=== PATIENT | female | born 1975 | race Caucasian/White ===

== ENCOUNTER → 2024-07-02 08:42 | Outpatient (CLI) | payer BC, SELFPAY ==
--- NOTE | ~2024-07-02 | XR_ITS ---
EXAMINATION: XR hand LT min 3V DATE: 07/02/2024 08:58 INDICATION: Left hand pain. TECHNIQUE: 3 views of left hand were obtained. COMPARISON: None. FINDINGS: Alignment is normal. No fracture. Joint spaces are normal. IMPRESSION: 1. Normal left hand. Reviewed, dictated and finalized at location A. [employer] IMPRESSION: 1. Normal left hand.
== END ==
DX: M79.645 Pain in left finger(s) (principal)
CPT/HCPCS: 73130

== ENCOUNTER 2024-07-14 12:03 | Emergency (ER) | payer BC, SELFPAY ==
--- NOTE | ~2024-07-14 | CT_ITS ---
EXAMINATION: CT brain wo con DATE: 07/14/2024 12:47 INDICATION: Headache. TECHNIQUE: Computed tomography (CT) of the head was performed without intravenous contrast. The mA wa s adjusted according to patient size. Iterative reconstruction technique was employed. The dose-lengt h product was 529.67 mGy-cm. COMPARISON: Head CT 03/17/2013 FINDINGS: There is no intracranial hemorrhage, acute infarction, or abnormal intracranial mass lesion . The ventricles are normal in size. The paranasal sinuses are clear. The orbits are normal. The mast oid air cells are normal. IMPRESSION: 1. Normal brain. Reviewed, dictated and finalized at location A. INTERN IMPRESSION: 1. Normal brain.
[2024-07-14 12:06] VITALS: BP 148/92; PULSE 66; RESP 16; TEMP 36.4; O2SAT 100
--- NOTE | 2024-07-14 12:37 | ED_ITS ---
HPI - Headache General Chief Complaint: Headache <PRACHI Watts Last Filed: 07/15/24 17:23> Stated Complaint: migraine [id number] <PRACHI Watts Last Filed: 07/15/24 17:23> Time Seen by Provider: 07/14/24 12:37 <Anahi Glover PA-C - Last Filed: 07/15/24 17:23> Focused HPI: This is a 49 year old female that presents to the ER for migraine headache. Reports she takes as needed Sumatriptan. She has been taking this with little relief. She has not taken anything yet today for her headache. GENERAL: Well-appearing, well-nourished, and in no acute distress. HEAD: Normocephalic, atraumatic. CHEST: Clear to auscultation. ?No respiratory distress. HEART: Regular rate and rhythm.? NEURO: ?Alert and oriented x3. Patient screened in triage and initial orders placed.? ?Additional care and disposition to be based upon?diagnostic testing and treatment. <Anahi Glover PA-C - Last Filed: 07/15/24 17:23> Source: patient <PRACHI Chen Last Filed: 07/15/24 01:54> Mode of arrival: ambulatory <PRACHI Chen Last Filed: 07/15/24 01:54> Limitations: no limitations <PRACHI Chen Last Filed: 07/15/24 01:54> History of Present Illness HPI Narrative: Agree with triage note above. She does confirm that she has migraine history but has not taken anything for migraines today. Endorses mild photophobia but no vision change. Denies numbness, weakness, neck pain, neck stiffness, fevers, chills, nausea, vomiting. <PRACHI Chen Last Filed: 07/15/24 01:54> Related Data Allergies/Adverse Reactions: Allergies Allergy/AdvReac Type Severity Reaction Status Date / Time Sulfa (Sulfonamide Allergy Unknown Hives Verified 07/14/24 12:05 Antibiotics) <PRACHI Watts Last Filed: 07/15/24 17:23> Review of Systems Review of Systems: All systems as dictated in HPI <Eric Jenkins PA-C - Last Filed: 07/15/24 01:54> PMFSH Family History Family History: Family History (Updated 01/11/16 @ 23:21 by DOCTOR UNKNOWN) Mother Family history of osteoarthritis Patient's mother is in good health Father Patient's father is in good health Sibling Patient's brother is in good health Family history of allergic disorder Grandparent Family history of Alzheimer's disease Other Family history of eczema Family history of migraine headaches <Anahi Glover PA-C - Last Filed: 07/15/24 17:23> Social History Social History: Social History Alcohol intake: current <Anahi Glover PA-C - Last Filed: 07/15/24 17:23> Exam Narrative: GENERAL: Well-appearing, well-nourished, and in no acute distress. HEAD: Normocephalic, atraumatic. EYES: PERRLA and EOMI. ENT: Nares clear, no rhinorrhea or epistaxis. Mucous membranes moist. Oropharynx without tonsillar hypertrophy exudate or other lesions. NECK: Supple. No adenopathy or masses. CHEST: No respiratory distress. Clear to auscultation. No wheezes rales or rhonchi HEART: Regular rate and rhythm. No murmur heard. Normal peripheral pulses. ABDOMEN: Soft, nontender, nondistended, normal active bowel sounds. MSK: Normal range of motion. No edema. SKIN: Warm, dry, no rash. NEURO: Alert and oriented x4. No focal deficits. PSYCH: Normal mood and affect. <Eric Jenkins PA-C - Last Filed: 07/15/24 01:54> Course Vital Signs Vital signs: Vital Signs Temperature 97.6 F 07/14/24 12:06 Pulse Rate 66 07/14/24 12:06 Respiratory Rate 16 07/14/24 12:06 Blood Pressure 148/92 H 07/14/24 12:06 Pulse Oximetry 100 07/14/24 12:06 Temperature 97.7 F 07/14/24 20:34 Pulse Rate 65 07/14/24 20:34 Respiratory Rate 18 07/14/24 20:34 Blood Pressure 148/98 H 07/14/24 20:34 Pulse Oximetry 100 07/14/24 20:34 <Anahi Glover PA-C - Last Filed: 07/15/24 17:23> Vital Signs Temperature 97.6 F 07/14/24 12:06 Pulse Rate 66 07/14/24 12:06 Respiratory Rate 16 07/14/24 12:06 Blood Pressure 148/92 H 07/14/24 12:06 Pulse Oximetry 100 07/14/24 12:06 Temperature 97.7 F 07/14/24 20:34 Pulse Rate 65 07/14/24 20:34 Respiratory Rate 18 07/14/24 20:34 Blood Pressure 148/98 H 07/14/24 20:34 Pulse Oximetry 100 07/14/24 20:34 <Eric Jenkins PA-C - Last Filed: 07/15/24 01:54> MDM - Headache MDM Narrative Medical decision making narrative: This is a 49-year-old female who presents to the ED for chief complaint of migraine headache times 36 hours. Vitals are normal. Exam remarkable for the above. No red flag signs for headache today. Low suspicion for infectious process. CT brain shows no acute findings. Patient was who given headache cocktail including magnesium which did provide good relief. Presentation consistent with migraine. Patient will be discharged in stable condition. Supportive measures discussed and return precautions given. Patient is understanding and agreeable with plan for discharge with PCP follow-up. <Eric Jenkins PA-C - Last Filed: 07/15/24 01:54> Imaging Data Radiologist's impression: ITS Impressions Head CT 07/14/24 12:47 IMPRESSION: 1. Normal brain. <Anahi Glover PA-C - Last Filed: 07/15/24 17:23> Critical Care Time Critical Care Time Critical Care Time: No <PRACHI Watts Last Filed: 07/15/24 17:23> Discharge Plan Discharge Clinical Impression: Migraine Qualifiers: Migraine type: unspecified Status migrainosus presence: without status migrainosus Intractability: not intractable Qualified Code(s): G43.909 - Migraine, unspecified, not intractable, without status migrainosus <Anahi Glover PA-C - Last Filed: 07/15/24 17:23> Patient Disposition: Home, Self-Care <Anahi Glover PA-C - Last Filed: 07/15/24 17:23> Condition: Stable <Anahi Glover PA-C - Last Filed: 07/15/24 17:23> Instructions: Antibiotic Form, Migraine Headache (ED) <Anahi Glover PA-C - Last Filed: 07/15/24 17:23> Additional Instructions: Your exam and imaging today are reassuring. Continue taking your normal headache medications as well as ibuprofen when headache arises. Follow-up with PCP on this issue. If you have any new or worsening symptoms please return to the ER for further evaluation. <Anahi Glover PA-C - Last Filed: 07/15/24 17:23> Patient Language: Guinean <Anahi Glover PA-C - Last Filed: 07/15/24 17:23> Follow-up/Referrals: PHYSICIAN NOT ON STAFF,NONSTAFF [Non-Staff] - <Anahi Glover PA-C - Last Filed: 07/15/24 17:23> Time of Disposition: 20:00 <Anahi Glover PA-C - Last Filed: 07/15/24 17:23> 20:00 <Eric Jenkins PA-C - Last Filed: 07/15/24 01:54>
--- OUTSIDE RECORDS SUMMARY | 2024-07-14 12:51 | XMS_ITS | Clinical Summary ---
Author Organization [facility] Address [address] [facility] [place] [address] Phone Care Team Providers Care [employer] Head Name Role Phone Rossi Jensen MD Primary Care Provider [phone] Allergies Active Allergy Reactions Criticality Noted Date Comments Sulfa (Sulfonamide Antibiotics) Hives High 08/31/2018 Other reaction(s): Urticaria Medications clindamycin phosphate (CLEOCIN) 1 % Lotion APPLY TO FACE 1 TO 2 TIMES DAILY TO FIGHT ACNE 0 Active aspirin (WINNIE CHEWABLE) 81 mg Tablet, Chewable Take 81 mg by mouth. Active multivitamin (DAILY-VARGAS) tablet Take 1 Tablet by mouth daily. Active cetirizine 5 mg tablet Take 5 mg by mouth daily. Active Epiduo Forte 0.3-2.5 % Gel with Pump 3 Active levonorgestrel (MIRENA INTRAUTERINE) by Intrauterine route. Active triamcinolone acetonide (KENALOG) 0.1 % Cream APPLY TWICE DAILY TO ITCHY IRRITATED SKIN WHEN NEEDED 3 Active tamoxifen (NOLVADEX) 20 mg tablet Take 1 Tablet (20 mg) by mouth daily. 90 Tablet 3 4 Active SUMAtriptan (IMITREX) 50 mg tabletIndicatio ns:Migraine with aura and without status migrainosus, not intractable TAKE 1 TABLET BY MOUTH EVERY 2 HOURS NEEDED FOR HEADACHE OR MIGRAINE. MAY REPEAT IN 2 HOURS; MAX DOSE 4 TABLETS IN 24 HOURS 9 Tablet 11 4 Active venlafaxine (EFFEXOR XR) 150 mg Extended Release 24 hour capsuleIndicati ons:Recurrent major depressive disorder, in partial remission,Anxie ty state TAKE 1 CAPSULE(150 MG) BY MOUTH DAILY 90 Capsule 1 4 Active gabapentin (NEURONTIN) 100 mg capsuleIndicati ons:Menopausal symptoms Take 1 Capsule (100 mg) by mouth daily at bedtime. 100 Capsule 3 5 Active Magnesium Glycinate 100 mg TabletIndicatio ns:At high risk for breast cancer,Hot flashes Take 200 mg by mouth daily at bedtime. 5 Active methylPREDNISol one (MEDROL DOSPACK) 4 mg Tablets, Dose Pack 1st day: Take 2 tablets before breakfast, 1 tablet after lunch and after supper, and 2 tablets at bedtime. 2nd day: Take 1 tablet before breakfast, 1 tablet after lunch and after supper, and 2 tablets at bedtime. 3rd day: Take 1 tablet before breakfast and 1 tablet after lunch, after supper, and at bedtime. 4th day: Take 1 tablet before breakfast, after lunch, and at bedtime. 5th day: Take 1 tablet before breakfast and at bedtime. 6th day: Take 1 tablet before breakfast. 21 Tablet 5 Active amoxicillin-cla vulanate (AUGMENTIN) 875-125 mg tablet Take 1 Tablet by mouth every 12 hours. 20 Tablet 5 Active Active Problems Patient Care Coordination No te Formatting of this note migh t be different from the original. Primary Care: Eli Martini MD Referring Provider: Eli Martini MD [address] [address] Other: Dr Rosaline Martins MD Problem Noted Date Diagnosed Date Migraine with aura and witho ut status migrainosus, not intractable 11/30/2020 Recurrent major depressive disorder, in partial remission 11/30/2020 Overweight (BMI 25.0-29.9) 11/30/2020 Atypical ductal hyperplasia of left breast 11/21 Breast cancer screening, high risk patient 11/21 Anxiety state 11/28/2019 Resolved Problems Problem Noted Date Diagnosed Date Resolved Date Weight gain 11/28/2019 04/16/2023 Encounters Date Type Department Care Team Description 07/14/2024 10:40 AM MANAGER PATIENT Office Visit [facility] Primary Care [facility] [address] [place] [address] Jaylen Cerda PA-C Cough, unspecified type (Primary Dx); Worst headache of life 07/06/2024 External Device Data ST[facility] ABSTRACTION Provider, Abstract 07/05/2024 External Device Data ST[facility] ABSTRACTION Provider, Abstract 07/04/2024 Results Follow-Up [facility] [address] [place] [address] Rossi Jensen MD 07/04/2024 Orders Only [facility] [address] [place] [address] Rossi Jensen MD Pain of finger of left hand 07/01/2024 2:00 PM MANAGER PATIENT Office Visit [facility] Oncology and Hematology [facility] [address] [facility] [address] [place] [phone] Martha Malone, RAAD At high risk for breast cancer (Primary Dx); Hot flashes; SERM use (selective estrogen receptor modulator); Atypical ductal hyperplasia of left breast; Encounter for medication monitoring 07/01/2024 11:45 AM MANAGER PATIENT Office Visit [facility] Breast Surgery José Miguel Severiano [address] [facility] [address] [place] [address] Dot Holland, ASSISTANT HVAC MECHANIC Breast cancer screening by mammogram (Primary Dx); Atypical ductal hyperplasia of left breast; At high risk for breast cancer; Family history of breast cancer; Prophylactic use of tamoxifen 07/01/2024 Chart Note [facility] Breast Surgery José Miguel [place] [address] [facility] [address] [place] [address] Yuly Abbasi 06/28/2024 External Device Data STL ABSTRACTION Provider, Abstract 06/27/2024 1:00 PM MANAGER PATIENT Office Visit [facility] [address] [place] [address] Rossi Jensen MD Pain of finger of left hand (Primary Dx); Menopausal symptoms; Anxiety state; Migraine with aura and without status migrainosus, not intractable; Recurrent major depressive disorder, in partial remission; Atypical ductal hyperplasia of left breast; Overweight (BMI 25.0-29.9); Screening for diabetes mellitus; Screening, anemia, deficiency, iron; Screening cholesterol level; Screening for thyroid disorder; Vitamin D insufficiency 06/27/2024 9:07 AM MANAGER PATIENT - 06/27/2024 11:59 PM [facility] Hospital Encounter [facility] [address] Miguel [place] [address] [place] [address] Dot Holland, ASSISTANT HVAC MECHANIC Discharge Disposition: Home or Self Care 06/13/2024 Refill [facility] Primary Care [place] [facility] [address] [place] [address] Rossi Jensen MD Recurrent major depressive disorder, in partial remission; Anxiety state from Last 3 Months Immunizations Immunization Administration Dates Next Due (SPIKEVAX) (12 YRS UP PRIMAR Y SERIES) COVID-19 VACCINE - MRNA-1273(PF) 100 MCG/0.5 ML IM SUSP 09/13/2020,08/13/2020 INFLUENZA VACCINE QUADRIVALE NT 6 MOS UP PF IM 04/16/2023 INFLUENZA VACCINE TRIVALENT SPLIT VIRUS, (6 MOS UP), 0.5ML (PF), IM 03/15/2024 Influenza Seasonal Unspecifi ed Formulation IM 03/15/2022,04/11/2021,04/09/2020 Family History Medical History Relation Name Comments Healthy Brother 1 Healthy Brother 2 Healthy Brother 3 Healthy Daughter 1 Healthy Daughter 2 High Cholesterol Father dad Hypertension Father dad Kidney Disease Maternal Grandfather Grandpa nicole Hypertension Mother Mom Osteoporosis Mother Mom Osteo-arthritis Cancer Paternal Grandfather Grandp Prostat e cancer Cancer - Other Paternal Grandfather Grandp Prost ate cancer Colon Cancer Paternal Grandfather Grandp Prostate Cancer Paternal Grandfather Grandp Other Paternal Grandmother Sunitha vision Healthy Son Relation Name Status Comments Brother 1 Alive Brother 2 Alive Brother 3 Alive Daughter 1 Alive Daughter 2 Alive Father dad Alive Maternal Grandfather Grandpa nicole Maternal Grandmother Mother Mom Alive Paternal Grandfather Grandp Paternal Grandmother Sunitha Son Alive Social History Tobacco Use Types Packs/Day Years Used Date Smoking Tobacco: Never Passive Smoke Exposure: Never Smokeless Tobacco: Never Tobacco Cessation:Counseling Given: Not Answered Alcohol Use Standard Drinks/Week Comments Yes 1 (1 standard drink = 0.6 oz pur e alcohol) not often Feeling Safe Answer Date Recorded Fear of Current or Ex-Partner Not on file Emotionally Abused Not on file 07/21/2023 Within the last year, have y ou been kicked, hit, slapped, or otherwise physically hurt by your partner or ex-partner? No 07/21/2023 Sexually Abused Not on file 07/21/2023 Feeling Safe Answer Date Recorded Do you worry about feeling s afe and happy with the people in your life? No 07/01/2024 Comments No Sex and Gender Information Value Date Recorded Sex Assigned at Not on file Legal Sex Female 5:06 AM MANAGER PATIENT Gender Identity Not on file Sexual Orientation Not on file Last Filed Vital Signs Vital Sign Reading Time Taken Comments Blood Pressure 110/80 07/14/2024 10:44 AM MANAGER PATIENT Pulse 83 07/14/2024 10:44 AM MANAGER PATIENT Temperature 36.9 ??C (98.5 ??F) 07/14/2024 10:[address] Respiratory Rate 18 07/14/2024 10:44 AM MANAGER PATIENT Oxygen Saturation 98% 07/14/2024 10:44 AM MANAGER PATIENT Inhaled Oxygen Concentration - - Weight 78.3 kg (172 lb 9.6 oz) 07/14/2024 10:44 AM MANAGER PATIENT Height 167.6 cm (5' 6 ) 07/14/2024 10:44 AM MANAGER PATIENT Body Mass Index 27.86 07/14/2024 10:44 AM MANAGER PATIENT Plan of Treatment Upcoming Encounters Date Type Department Care Team (Late st Contact Info) Description 10/03/2024 2:40 PM CDT Office Visit [facility] Primary Care [facility] [address] [place] [address] Rossi Jensen MD [address] [place] [address] 12/12/2024 10:00 AM CDT Office Visit [facility] [address] [address] [email or web address] [address] [place] [address] Gloria Montez MD [address] [facility] [address] [place] [address] 12/27/2024 8:30 AM CDT Appointment [facility] Medical [place] A [address] [place] [address] Dot Holland, [facility] [address] [facility] [address] [place] [address] Health Maintenance Due Date Last Done Comments DTAP/TDAP/TD VACCINES (1 - Tdap) 1994 HEPATITIS B VACCINES (1 of 3 - 19+ 3-dose series) 1994 FIT-DNA Q 3 years 2020 FIT/FOBT Q 1 year 2020 Flex Sig/CT Colonography Q 5 years 2020 Pre-Diabetes and Diabetes Screening 01/25/2023 01/26/2020 COVID-19 Vaccine (2023-2 5 season) 2024 09/13/2020, 08/13/2020 Preventative Visit- Commercial 06/15/2024 0 12/11/2023, 08/31/2023, 12/09/2022, Additional history exists BREAST CANCER SCREENING 11/25/2024 11/26/19 24, 07/30/2023, 12/08/2022, Additional history exists CERVICAL CANCER SCREENING 12/09/20252022, 11/27/2021, 11/27/2020, Additional history exists COLORECTAL SCREENING 09/12/2028 09/12/2021, 09/13/19 22 Colorectal Cancer Screening 09/12/2028 INFLUENZA VACCINE Completed 03/15/2024, , 03/15/2022, Additional history exists Medical Devices Implanted Type Area Audit Mgr Device Identifier Shelf Expiration Date Model / Serial / Lot Hemostatic Surgicel 2x14in 1950 - [id number] Implanted:Qty: 1 on 02/14/2020 by Rosaline Martins MD at [facility] Hemostatic Left: Breast [employer] 03/14/20221950 / / [id number] Procedures Procedure Name Priority Date/Time Associated Diagnosis Comments POC INFLUENZA A/B AND COVID-19 ANTIGENS Routine 07/14/2024 11:11 AM MANAGER PATIENT Cough, unspecified type VITAMIN D 25 HYDROXY Routine 07/04/2024 9:05 AM MANAGER PATIENT Vitamin D insufficiency TSH REFLEXIVE Routine 07/04/2024 9:05 AM MANAGER PATIENT Screening for thyroid disorder LIPID PANEL Routine 07/04/2024 9:05 AM MANAGER PATIENT Screening cholesterol level COMPREHENSIVE METABOLIC PANEL Routine 07/04/2024 9:05 AM MANAGER PATIENT Screening for diabetes mellitus CBC WITH DIFFERENTIAL Routine 07/04/2024 9:05 AM MANAGER PATIENT Atypical ductal hyperplasia of left breast Screening, anemia, deficiency, iron XR HAND 3+ VW LEFT Routine 07/02/2024 Pain of finger of left hand MRI BREAST DIAGNOSTIC WWO CONTRAST BILATERAL Routine 06/27/2024 9:49 AM MANAGER PATIENT Atypical ductal hyperplasia of left breast Breast cancer screening, high risk patient At high risk for breast cancer MAMMO 3D CASIE SCREEN BILAT W OR WO CAD Routine 11/26/2023 9:34 AM CDT Visit for screening mammogram CERV/VAG CYTO AGE BASED SCREEN PAP Routine 12/09/2022 10:56 AM CDT Well woman exam with routine gynecological exam COLONOSCOPY REPORT 09/12/2021 12 :17 PM CDT HEMOGLOBIN A1C Routine 01/26/2020 10:00 AM CDT Screening for diabetes mellitus (DM) from Last 3 Months or Most Recently Relevant to Health Maintenance Results * POC INFLUENZA A/B AND COVID-19 ANTIGENS (07/14/2024 11:11 AM MANAGER PATIENT) INFLUENZA A AG POC Not Detected Not Detected [facility] INFLUENZA B AG POC Not Detected Not Detected [facility] COVID-19 ANTIGEN POC Presumptively Negative Presumptively Negative [facility] INTERNAL KIT QC POC Pass Pass [facility] KIT LOT NUMBER POC [id number] [facility] KIT EXP DATE POC [id number] [facility] Upper Respiratory 07/14/2024 11:11 AM MANAGER PATIENT us Jaylen Cerda PA-C POINT OF CARE TESTING Final Result Performing Organization Address [facility] de Phone Number [facility] CLIA# [id number] [address] [place] [address] * TSH REFLEXIVE (07/04/2024 9:05 AM MANAGER PATIENT) TSH 1.53 mIU/L [facility] Comment: ?Reference Range ?> or = 20 Years ??0.40-4.50 ? Ranges ?First trimester ?0.26-2.66 ?Second trimester ?? 0.55-2.73 ?Third trimester ?0.43-2.91 Test Performed at: [facility] [address] [place] ??[phone] Sloane Johnson MD Blood 07/04/2024 9:05 AM MANAGER PATIENT 07/04/2024 9:06 AM MANAGER PATIENT us Rossi Jensen MD CHEMISTRY ORDERABLES Final Resul t Performing Organization Address [facility] de Phone Number [facility] [phone] [facility] [address] [place] [address] * CBC WITH DIFFERENTIAL (07/04/2024 9:05 AM MANAGER PATIENT) WBC 5.6 3.8 - 10.8 Thousand/u L [facility] RBC 4.45 3.80 - 5.10 Million/uL [facility] HEMOGLOBIN 14.0 11.7 - 15.5 g/dL [facility] HEMATOCRIT 42.3 35.0 - 45.0 % [facility] MCV 95.1 80.0 - 100.0 fL [facility] MCH 31.5 27.0 - 33.0 pg [facility] MCHC 33.1 32.0 - 36.0 g/dL [facility] Comment: For adults, a slight decrease in the calculated MCHC value (in the range of 30 to 32 g/dL) is most likely not clinically significant; however, it should be interpreted with caution in correlation with other red cell parameters and the patient's clinical condition. RDW 12.3 11.0 - 15.0 % [facility] PLATELETS 359 140 - 400 Thousand/u L [facility] MPV 10.1 7.5 - 12.5 fL [facility] NEUTROPHIL ABSOLUTE 2,873 1,500 - 7,800 cells/uL [facility] LYMPHOCYTE ABSOLUTE 2,167 850 - 3,900 cells/uL [facility] MONOCYTE ABSOLUTE 381 200 - 950 cells/uL [facility] EOSINOPHIL ABSOLUTE 118 15 - 500 cells/uL [facility] BASOPHILS ABSOLUTE 62 0 - 200 cells/uL [facility] NEUTROPHIL 51.3 % [facility] LYMPHOCYTES 38.7 % [facility] MONOCYTE 6.8 % [facility] EOSINOPHILS 2.1 % [facility] BASOPHILS 1.1 % [facility] Comment: FASTING:YES FASTING: YES Test Performed at: [facility] [address] [place] ??[phone] Sloane Johnson MD Blood 07/04/2024 9:05 AM MANAGER PATIENT 07/04/2024 9:06 AM MANAGER PATIENT us Rossi Jensen MD HEMATOLOGY ORDERABLES Final Resu lt [facility] [phone] [facility] [address] * VITAMIN D 25 HYDROXY (07/04/2024 9:05 AM MANAGER PATIENT) VITAMIN D, 25 OH, TOTAL 78 30 - 100 ng/mL [facility] Comment: Vitamin D Status ? 25-OH Vitamin D: Deficiency: ?<20 ng/mL Insufficiency: ? 20 - 29 ng/mL Optimal: ? > or = 30 ng/mL For 25-OH Vitamin D testing on patients on D2-supplementation and patients for whom quantitation of D2 and D3 fractions is required, the Quest[facility]ure[facility](TM) 25-OH VIT D, (D2,D3), LC/MS/MS is recommended: order code [id number] (patients >2yrs). See Note 1 Note 1 For additional information, please refer to http://education.[facility]/faq/DNZ464 (This link is being provided for informational/ educational purposes only.) FASTING:YES FASTING: YES Test Performed at: [facility] ??[phone] Sloane Johnson MD Blood 07/04/2024 9:05 AM MANAGER PATIENT 07/04/2024 9:06 AM MANAGER PATIENT us Rossi Jensen MD CHEMISTRY ORDERABLES Final Resul t Performing Organization Address City/[facility]/ZIP Co de Phone Number [facility] [phone] [facility] [address] * LIPID PANEL (07/04/2024 9:05 AM MANAGER PATIENT) Pathologist [facility] CHOLESTEROL 164 <200 mg/dL [facility] HDL 68 > OR = 50 mg/dL [facility] TRIGLYCERIDE 110 <150 mg/dL [facility] LDL CALCULATED 76 mg/dL (calc) [facility] Comment: Reference range: <100 Desirable range <100 mg/dL for primary prevention; ?? <70 mg/dL for patients with CHD or diabetic patients with > or = 2 CHD risk factors. LDL-C is now calculated using the Kevin-Walker calculation, which is a validated novel method providing better accuracy than the Friedewald equation in the estimation of LDL-C. Kevin SS et al. DEMETRIUS. 2013;310(19): 2585-1831 (http://education.[facility]/faq/YXC970) CHOL/HDL RATIO 2.4 <5.0 (calc) [facility] NON-HDL CHOLESTEROL 96 <130 mg/dL (calc) [facility] Comment: For patients with diabetes plus 1 major ASCVD risk factor, treating to a non-HDL-C goal of <100 mg/dL (LDL-C of <70 mg/dL) is considered a therapeutic option. Test Performed at: [facility] [address] [place] ??[phone] Sloane Johnson MD Blood 07/04/2024 9:05 AM MANAGER PATIENT 07/04/2024 9:06 AM MANAGER PATIENT us Rossi Jensen MD CHEMISTRY ORDERABLES Final Resul t [facility] [phone] [facility] [address] [place] [address] * (ABNORMAL) COMPREHENSIVE METABOLIC PANEL (07/04/2024 9:05 AM MANAGER PATIENT) GLUCOSE 81 65 - 99 mg/dL [facility] Comment: ? Fasting reference interval BUN 19 7 - 25 mg/dL [facility] CREATININE 1.01(H) 0.50 - 0.99 mg/dL [facility] GFR 68 > OR = 60 mL/min/1.7 3m2 [facility] BUN/CREAT RATIO 19 6 - 22 (calc) [facility] SODIUM 140 135 - 146 mmol/L [facility] POTASSIUM 4.6 3.5 - 5.3 mmol/L [facility] CHLORIDE 103 98 - 110 mmol/L [facility] CO2 32 20 - 32 mmol/L [facility] CALCIUM 9.8 8.6 - 10.2 mg/dL [facility] TOTAL PROTEIN 7.1 6.1 - 8.1 g/dL [facility] ALBUMIN 4.5 3.6 - 5.1 g/dL [facility] GLOBULIN 2.6 1.9 - 3.7 g/dL (calc) [facility] ALBUMIN/GLOBULIN RATIO 1.7 1.0 - 2.5 (calc) [facility] BILIRUBIN TOTAL 0.4 0.2 - 1.2 mg/dL [facility] ALKALINE PHOSPHATASE 44 31 - 125 U/L [facility] AST 24 10 - 35 U/L [facility] ALT 19 6 - 29 U/L [facility] Comment: FASTING:YES FASTING: YES Test Performed at: [facility] [address] [place] ??[phone] Sloane Johnson MD Blood 07/04/2024 9:05 AM MANAGER PATIENT 07/04/2024 9:06 AM MANAGER PATIENT Rossi Jensen MD CHEMISTRY ORDERABLES Final Resul t [facility] [phone] [facility] [address] [place] [address] * XR HAND 3+ VW LEFT (07/02/2024) Anatomical Region Laterality Modality Wrist / Hand Other 07/02/2024 Rossi Jensen MD DIAGNOSTIC IMAGING ORDERABLES Fi nal Result * MRI BREAST W WO CONT BILAT (06/27/2024 9:49 AM MANAGER PATIENT) Anatomical Region Laterality Modality Breast Bilateral Magnetic Resonan ce 06/27/2024 9:53 AM MANAGER PATIENT Impressions 06/27/2024 10:22 AM MANAGER PATIENT IMPRESSION: ?? 1. No evidence of malignancy is identified within either breast. RECOMMENDATIONS: ?? Routine imaging follow-up is recommended, which may include annual mammography as well as annual bilateral breast MRI in this patient with increased breast cancer risk. DICTATION LOCATION: ??[place] Narrative 06/27/2024 10:22 AM MANAGER PATIENT BILATERAL BREAST MRI WITHOUT AND WITH IV CONTRAST WITH CAD ?? DATE: 06/27/2024 9:49 AM HISTORY: Breast cancer screening, high risk (Female >= 18y), high risk for breast cancer. ??Previous excisional biopsy in the left in 2023 a complex sclerosing lesion and ADH. Family history breast cancer with increased breast cancer risk. Previous benign MRI guided core biopsy left breast last year. High-risk screening. COMPARISON: May 2021 through June 2023. The bilateral mammogram performed in November 2023 was also reviewed. TECHNIQUE: Bilateral multisequence dynamic breast MRI was performed before and after intravenous contrast administration. Images are acquired on dedicated Sentinelle breast coil system and image interpretation performed with [employer]inos CAD software. ?? BREAST COMPOSITION: There are scattered areas of fibroglandular density. BACKGROUND ENHANCEMENT: Mild FINDINGS: No new enhancing mass or suspicious nonmass enhancement is identified within either breast which stands out above background. The nipple areolar complexes are normal. No dermal thickening or enhancement is appreciated. There is no evidence of axillary or internal mammary adenopathy. The visible soft tissues of the anterior chest wall appear normal. OVERALL FINAL ASSESSMENT: BI-RADS CATEGORY 1 - Negative us Dot Holland ASSISTANT HVAC MECHANIC MR ORDERABLES Final Res ult * MAMMO 3D CASIE SCREEN BILAT W OR WO CAD (11/26/2023 9:34 AM CDT) Anatomical Region Laterality Modality Breast Bilateral Mammography 11/26/2023 9:35 AM CDT Impressions 11/27/2023 7:53 AM CDT IMPRESSION: ?? No mammographic evidence of malignancy. RECOMMENDATIONS: ?? Routine screening mammogram in one year. DICTATION LOCATION: ??[place] Narrative 11/27/2023 7:53 AM CDT BILATERAL FULL-FIELD DIGITAL SCREENING MAMMOGRAM WITH CAD WITH 3D TOMOSYNTHESIS DATE: 11/26/2023 9:34 AM HISTORY: Routine screening. ??Previous excisional biopsy on the left for atypia and previous benign biopsy of the left breast. Annual follow-up. ?? TECHNIQUE: Full-field digital craniocaudal and mediolateral oblique projections of both breasts were obtained. Low-dose full-field digital breast tomosynthesis examination was performed with 2D and 3D acquisitions. Examination is read in conjunction with computer aided detection. COMPARISON: November 2019 through July 2023. ?? BREAST COMPOSITION: There are scattered areas of fibroglandular density. FINDINGS: No suspicious mass, suspicious microcalcifications, or architectural distortion in either breast is identified. Since the prior study, there has been no significant interval change. The computer aided diagnosis detects no significant abnormality. OVERALL FINAL ASSESSMENT: ??BI-RADS CATEGORY 1 - Negative. Procedure Note ChambersChristian MD - 11/27/2023 BILATERAL FULL-FIELD DIGITAL SCREENING MAMMOGRAM WITH CAD WITH 3D TOMOSYNTHESIS DATE: 11/26/2023 9:34 AM HISTORY: Routine screening. Previous excisional biopsy on the left for atypia and previous benign biopsy of the left breast. Annual follow-up. TECHNIQUE: Full-field digital craniocaudal and mediolateral oblique projections of both breasts were obtained. Low-dose full-field digital breast tomosynthesis examination was performed with 2D and 3D acquisitions. Examination is read in conjunction with computer aided detection. COMPARISON: November 2019 through July 2023. BREAST COMPOSITION: There are scattered areas of fibroglandular density. FINDINGS: No suspicious mass, suspicious microcalcifications, or architectural distortion in either breast is identified. Since the prior study, there has been no significant interval change. The computer aided diagnosis detects no significant abnormality. OVERALL FINAL ASSESSMENT: BI-RADS CATEGORY 1 - Negative. IMPRESSION: No mammographic evidence of malignancy. RECOMMENDATIONS: Routine screening mammogram in one year. DICTATION LOCATION: [facility] Sever[facility] [place] ASSISTANT HVAC MECHANIC MAMMO ORDERABLES Final Re sult * CERV/VAG CYTO AGE BASED SCREEN PAP (12/09/2022 10:56 AM CDT) COMMENT (PAP): [facility] [place] Comment: This order for age-based cervical cancer and STI screening follows ACOG guidelines(PB 168, 140, ERZ959). See individual assays for performing site location. CLINICAL INFORMATION [facility] [place] Comment:Routine exam LAST MENSTRUAL PERIOD [facility] [place] Comment:NONE GIVEN PREV PAP: [facility] [place] Comment:NONE GIVEN PREV BX: [facility] [place] Comment:NONE GIVEN SOURCE [facility] [place] Comment:Endocervix ADEQUACY: [facility] [place] Comment: Satisfactory for evaluation. Endocervical/transformation zone component present. Age and/or menstrual status not provided PAP INTERP [facility] [place] Comment:Negative for intraep ithelial lesion or malignancy. COMMENT (PAP TEST) [facility] [place] Comment: This Pap test has been evaluated with computer assisted technology. GLASS PRESSER: [facility] Comment: MVB, CT(ASCP) CT Screening Location: [place] [address] [place] [address] EXPLANATORY NOTE [facility] Comment: EXPLANATORY NOTE: The Pap is a screening test for cervical cancer. It is not a diagnostic test and is subject to false negative and false positive results. It is most reliable when a satisfactory sample, regularly obtained, is submitted with relevant clinical findings and history, and when the Pap result is evaluated along with historic and current clinical information. HPV E6/E7 Not Detected Not Detected [facility] [place] Comment: Methodology: Iron Miner [employer]asting-Mediated Amplification This assay detects E6/E7 viral messenger RNA (mRNA) from 14 high-risk HPV types (16,18,31,33,35,39,45,51,52,56,58,59,66,68). Cervical sources are required for HPV testing. If a vaginal source from a patient who has had a total hysterectomy with removal of cervix was submitted, please contact the testing laboratory for alternative testing options. For additional information, please refer to http://education.hi5/faq/LRK755p8 (This link if provided for information/ educational purposes only.) Test Performed at: [facility] [address] [place], [place] ??[address] Slo[facility] BARBOZA Genital SWAB OF ENDOCERVIX / Unknown 12/09/2022 10:56 AM CDT 12/09/2022 11:29 PM CDT Gloria Montez MD PATHOLOGY/CYTOLOGY ORD ERABLES Final Result [facility] [phone] [facility] [address] [place] [address] * COLONOSCOPY REPORT (09/12/2021 12:17 PM CDT) Narrative Procedure Note Moody Aguilera MD - 09/12/2021 12:17 PM CDT [facility] Endoscopy Patient Name: Kelly Red Procedure Date: 09/12/2021 Date of : 1975 Attending MD: Moody Aguilera MD Procedure: Colonoscopy Indications: Screening for colorectal malignant neoplasm Providers: Moody Aguilera MD Referring MD: Rossi Jensen MD Medicines: Monitored Anesthesia Care Complications: No immediate complications. Procedure: Informed consent was obtained for the procedure, including moderate sedation after risks were discussed. Based on the pre-procedure assessment, including review of the patient's medical history, medications, allergies, and review of systems, the patient was deemed to be an appropriate candidate for sedation. A timeout was performed. Continuous ECG monitoring, pulse oximetry, blood pressure monitoring, and direct observation were performed. The Colonoscope was introduced through the anus and advanced to the cecum, identified by appendiceal orifice and ileocecal valve. The colonoscopy was performed without difficulty. The patient tolerated the procedure well. The quality of the bowel preparation was evaluated using the BBPS ([place] Bowel Preparation Scale) with scores of: Right Colon = 3, Transverse Colon = 3 and Left Colon = 3 (entire mucosa seen well with no residual staining, small fragments of stool or opaque liquid). The total BBPS score equals 9. Findings: A 4 mm polyp was found in the transverse colon. The polyp was sessile. The polyp was removed with a cold snare. Resection and retrieval were complete. The exam was otherwise normal throughout the examined colon. Non-bleeding internal hemorrhoids were found during retroflexion. The hemorrhoids were small. Impression: - One 4 mm polyp in the transverse colon, removed with a cold snare. Resected and retrieved. - Non-bleeding internal hemorrhoids. Recommendation: - Await pathology results. - If the pathology report reveals adenomatous tissue, then repeat the colonoscopy for surveillance in 7 years. - If the pathology report indicates hyperplastic polyp, then repeat colonoscopy for screening purposes in 10 years. Procedure Code(s): --- Professional --- 45807, Colonoscopy, flexible; with removal of tumor(s), polyp(s), or other lesion(s) by snare technique CPT copyright 2019 [employer]. All rights reserved. The codes documented in this report are preliminary and upon lead presser review may be revised to meet current compliance requirements. Moody Aguilera MD 09/12/2021 12:16:49 PM This report has been signed electronically. Number of Addenda: [id number] [place] [address] Moody Aguilera MD GI PROCEDURE ORDERABLES Final Re sult * HEMOGLOBIN A1C (01/26/2020 10:00 AM CDT) HEMOGLOBIN A1C 5.4 <5.7 % 01/26/2020 4:01 PM CDT [facility] [email or web address] [facility] EST. AVG GLUCOSE, A1C 108 mg/dL 01/26/2020 4:01 PM CDT [facility] [email or web address] [facility] Blood Venipuncture / Unknown 01/26/2020 10:00 AM CDT 01/26/2020 10:05 AM CDT Narrative [facility] [email or web address] [facility] - 01/26/2020 4:01 PM CDT HGB A1C INTERPRETATION NORMAL: ? <5.7% PRE-DIABETES: 5.7 - 6.4% DIABETES: ? 6.5% OR GREATER us Eli Martini MD CHEMISTRY ORDERABLES Final Res ult [facility] [id number] [place] [address] from Last 3 Months or Most Recently Relevant to Health Maintenance Insurance [facility] [email or web address] ACCESS CHOICE [facility] [email or web address] CHOICE [email or web address] CHOICE Care Teams Global Analytics Head Relationship Specialty Start Date End Date Birner, Rossi, MD [address] [place] [address] PCP - General Internal Medicine 11/30/20
--- OUTSIDE RECORDS SUMMARY | 2024-07-14 12:51 | XMS_ITS | Clinical Summary ---
Author Organization [facility] Address [address] [facility] [place] [address] Care Team Providers Care Career Resource Technician Name Role Phone Eli Martini MD Primary Care Provider Unavail able Source Comments [facility],non-owned Affiliates and Associated Physician Practices is amultiple site organization consisting of ambulatory clinics and hospital sitesin [place], [place], [place] and [place]. This disclosure is being madepursuant to the Care Everywhere program and may not contain all information available regarding this patient. Last updated 18.[facility] Allergies Active Allergy Reactions Criticality Noted Date Comments Sulfa Drugs Urticaria Medium 10/17/2020 Medications * Be aware that medications may not be up to date on this document. Alwaysverify current medications with the patient. Medication Sig Dispensed Refills Start Date End Date Status Loratadine (CLARITIN PO) Active aspirin (ASPIRIN) 81 MG chew tablet Take 81 mg by mouth once daily Active venlafaxine (EFFEXOR) 37.5 MG tablet Take 75 mg by mouth 3 times daily with meals Active tamoxifen (NOLVADEX) 20 MG tablet Take 20 mg by mouth once daily Active Social History Tobacco Use Types Packs/Day Years Used Date Smoking Tobacco: Never Smokeless Tobacco: Never PHQ-2 Answer Date Recorded PHQ2 TOTAL SCORE 0 10/17/2020 Sex and Gender Information Value Date Recorded Sex Assigned at Not on file Gender Identity Not on file Sexual Orientation Not on file Last Filed Vital Signs Vital Sign Reading Time Taken Comments Blood Pressure 124/74 10/17/2020 7:01 PM CDT Pulse 80 10/17/2020 7:01 PM CDT Temperature 36.7 ??C (98.1 ??F) 10/17/2020 7:01 PM CD T Respiratory Rate 16 10/17/2020 7:01 PM CDT Oxygen Saturation 98% 10/17/2020 7:01 PM CDT Inhaled Oxygen Concentration - - Weight 78.5 kg (173 lb) 10/17/2020 7:01 PM CDT Height 167.6 cm (5' 6 ) 10/17/2020 7:01 PM CDT Body Mass Index 27.92 10/17/2020 7:01 PM CDT Plan of Treatment Health Maintenance Due Date Last Done Comments COLOGUARD (AGES 45-75) - COLON CA SCREENING 1975 COLON MONITORING 1975 COLONOSCOPY - COLON CA SCREENING 1975 CT COLONOGRAPHY - COLON CA SCREENING 1975 Colorectal Cancer Screening 1975 FIT - COLON CA SCREENING 1975 FLEX SIG - COLON CA SCREENING 1975 LIPID TESTING 1975 MAMMOGRAM 1975 PAP SMEAR 1975 HIV SCREENING 1990 HEPATITIS C SCREENING 03/25/1993 DTAP/TDAP/TD VACCINES (1 - Tdap) 1994 HEPATITIS B VACCINE (1 of 3 - 19+ 3-dose series) 1994 SCREENING FOR DIABETES 10/17/2020 COVID-19 VACCINE ( season) 2024 09/13/2020, 09/13/2020, 08/13/2020, Additional history exists INFLUENZA VACCINE (#1) 2024 DEPRESSION SCREENING 06/15/2024 ZOSTER VACCINE (1 of 2) 2025 HIB VACCINE Aged Out No longer eligi ble based on patient's age to complete this topic HPV VACCINE Aged Out No longer eligi ble based on patient's age to complete this topic MENINGOCOCCAL (Group B) VACCINE Aged Out No longer eligible based on patient's age to complete this topic MENINGOCOCCAL VACCINE Aged Out No octavia matteo eligible based on patient's age to complete this topic PNEUMOCOCCAL VACCINE Aged Out No long er eligible based on patient's age to complete this topic Care Teams Career Resource Technician Relationship Specialty Start Date End Date Eli Martini MD PCP - General Internal Medicine 10/17/20
--- OUTSIDE RECORDS SUMMARY | 2024-07-14 12:51 | XMS_ITS | Encounter Summary ---
Author Organization [facility] Address [address] [place] [address] Care Team Providers Care Medical Language Specialist Name Role Phone Rossi Jensen MD Primary Care Provider [phone] Reason for Referral * CT Scan (Urgent) - Pending Review Specialty Diagnoses / Procedures Referred By Contwesley t Referred To Contact Diagnoses Worst headache of life Procedures CT HEAD W WO CONTRAST Jaylen Cerda PA-C [address] [place] [address] Phone: tel: fax: Referral ID Status Reason Start Date Expiration Date V isits Requested Visits Authorized [id number] Pending Review 07/14/2024 08/14/2025 1 1 ICAL TRIAL COORDINATOR Reason for Visit * Reason Comments Headache Headache going on fo r 36 hours Sinus Pain Sinus pain Fever Had fever on and Thursday Encounter Details Date Type Department Care Team (Late st Contact Info) Description 07/14/2024 10:40 AM CLINICAL TRIAL COORDINATOR Office [facility] [place] [address] Jaylen Cerda PA-C [address] [place] [address] Cough, unspecified type (Primary Dx); Worst headache of life Social History Tobacco Use Types Packs/Day Years Used Date Smoking Tobacco: Never Passive Smoke Exposure: Never Smokeless Tobacco: Never Alcohol Use Standard Drinks/Week Comments Yes 1 [...] on file Legal Sex Female 5:06 AM CLINICAL TRIAL COORDINATOR Gender Identity Not on file Sexual Orientation Not on file documented as of this encounter Last Filed Vital Signs Vital Sign Reading Time Taken Comments Blood Pressure 110/80 07/14/2024 10:44 AM CLINICAL TRIAL COORDINATOR Pulse 83 07/14/2024 10:44 AM CLINICAL TRIAL COORDINATOR Temperature 36.9 ??C (98.5 ??F) 07/14/2024 10:[address] Respiratory Rate 18 07/14/2024 10:44 AM CLINICAL TRIAL COORDINATOR Oxygen Saturation 98% 07/14/2024 10:44 AM CLINICAL TRIAL COORDINATOR Inhaled Oxygen Concentration - - Weight 78.3 kg (172 lb 9.6 oz) 07/14/2024 10:44 AM CLINICAL TRIAL COORDINATOR Height 167.6 cm (5' 6 ) 07/14/2024 10:44 AM CLINICAL TRIAL COORDINATOR Body Mass Index 27.86 07/14/2024 10:44 AM CLINICAL TRIAL COORDINATOR documented in this encounter Progress Notes * Jaylen Cerda PA-C - 07/14/2024 10:57 AM CST Chief Complaint Patient presents with Headache Headache going on for 36 hours Sinus Pain Sinus pain Fever Had fever on Thursday and Thursday Subjective: Kelly Red is a 49 y.o. female patient with sudden onset throbbing 8-9/10 headache that woke her from her sleep at 2 am yesterday morning (07/13/24). Pain seems localized to the right side of thehead but radiates throughout the left as well. She reports nausea, photophobia, no phonophobia. Shehas taken tylenol, ibuprofen, and sumatriptan without any relief of sx's. She reports associated nausea and photophobia. She has a h/o migraines with the last occurring about a month ago. However, she states migraines are typically alleviated with medications. She has taken tylenol, ibuprofen, and imitrex without any relief of her headache. She reports current headache is the worst headache of her life. She reports preceding fever and congestion that began this past weekend. She reports multiple family members have had similar sx's, and she has had a coworker test positive for influenza. Past Medical History: Diagnosis Date Anxiety state 11/28/2019 Atypical ductal hyperplasia of left breast Depression 10/20/2007 Onset after delivery; has remained inconsistently since Headache off and on since 2012 Hyperlipidemia 2019 Malignant neoplasm (CMS/HCC) Migraine with aura off and on since 2012 Psychosis (CMS/HCC) Past Surgical History: Procedure Laterality Date HX BREAST LUMPECTOMY FOR CANCER HX SECTION 10/21/2007; 12/31/2010 HX COLONOSCOPY N/A 09/12/2021 COLONOSCOPY performed by Moody Aguilera MD at [facility] ENDOSCOPY HX DILATION AND CURETTAGE 10/1997 HX EXCISION / BIOPSY BREAST / NIPPLE / DUCT Left 2019 ADH HX HERNIA REPAIR 1975 HX SPINAL SURGERY 2013 cervical HX TUBAL LIGATION Bilateral 2010 IN EXC CYST/ABERRANT BREAST TISSUE OPEN LESION Left 02/14/2020 LEFT BREAST EXCISIONAL BIOPSY WITH NEEDLE LOCALIZATION AT 7:00 AM performed by Rosaline Martins MDat [facility] OR Social History Tobacco Use Smoking status: Never Passive exposure: Never Smokeless tobacco: Never Vaping Use Vaping status: Never Used Substance Use Topics Alcohol use: Yes Alcohol/week: 1.0 standard drink of alcohol Types: 1 Shots of liquor per week Comment: not often Drug use: Never Family History Problem Relation Name Age of Onset Kidney Disease Maternal Grandfather Grandpa nicole Hypertension Father dad High Cholesterol Father dad Hypertension Mother Mom Osteoporosis Mother Mom Osteo-arthritis Healthy Brother Other Paternal Grandmother Sunitha vision Colon Cancer Paternal Grandfather Grandp Cancer Paternal Grandfather Grandp Prostate cancer Cancer - Other Paternal Grandfather Grandp Prostate cancer Prostate Cancer Paternal Grandfather Grandp Healthy Daughter Healthy Son Healthy Brother Healthy Brother Healthy Daughter Current Outpatient Medications Medication Magnesium Glycinate 100 mg Tablet gabapentin (NEURONTIN) 100 mg capsule venlafaxine (EFFEXOR XR) 150 mg Extended Release 24 hour capsule SUMAtriptan (IMITREX) 50 mg tablet tamoxifen (NOLVADEX) 20 mg tablet triamcinolone acetonide (KENALOG) 0.1 % Cream Epiduo Forte 0.3-2.5 % Gel with Pump levonorgestrel (MIRENA INTRAUTERINE) cetirizine 5 mg tablet multivitamin (DAILY-VARGAS) tablet aspirin (WINNIE CHEWABLE) 81 mg Tablet, Chewable clindamycin phosphate (CLEOCIN) 1 % Lotion No current facility-administered medications for this visit. Allergies Allergen Reactions Sulfa (Sulfonamide Antibiotics) Hives Other reaction(s): Urticaria Review of Systems Constitutional: Positive for activity change, appetite change, fatigue and fever. HENT: Positive for congestion. Eyes: Positive for photophobia. Negative for pain and visual disturbance. Respiratory: Negative for cough, shortness of breath and wheezing. Cardiovascular: Negative for chest pain. Gastrointestinal: Positive for nausea. Negative for constipation, diarrhea and vomiting. Skin: Negative for rash. Objective: Vitals: 07/14/24 1044 Temp: 98.5 ??F (36.9 ??C) Pulse: 83 BP: 110/80 Resp: 18 SpO2: 98% Last documented weight: Weight: 78.3 kg (172 lb 9.6 oz) (07/14/24 1044) Body mass index is 27.86 kg/m??. Exam: General - Alert and oriented. Appears uncomfortable, wearing sunglasses to shield her from the light; tearful Skin - No rashes and normal coloration on exposed skin. Head and Neck - Normocephalic, atraumatic. Neck supple with no lymphadenopathy. Eye - Extraocular movements intact bilaterally. Conjunctiva and sclera normal. ENMT - Oropharynx with normal palates, tongue, tonsils, and posterior pharynx. Otoscopic exam with normal external ear canals and tympanic membranes that are clear. No external ear discharge. Chest and Lungs - Lungs clear to auscultation bilaterally. Symmetrical chest movements with breathing and without use of accessory muscles. Cardiovascular - Regular rate and rhythm. No murmurs, gallops, or rubs. Abdomen - Soft, nontender, nondistended. No tenderness, no masses. Psych - tearful affect Neuro - Cranial nerves II-XII grossly intact, hyperreflexia noted; normal sensation and strength; finger-nose and pronator drift testing negative. Assessment/Plan Worst headache of life -influenza and COVID-19 testing negative. -Attempted stat CT. However, unable to get CT completed today. Pt will go to the ED for evaluation and management. She plans to go to [facility] for evaluation and management. Called [facility] and was transferred to the ED. Report given to David in the ED. Pt to follow up pending ED evaluation and PRN Jaylen Cerda PA-C ICAL TRIAL COORDINATOR documented in this encounter Miscellaneous Notes * Patient Instructions - Jaylen Cerda PA-C - 07/14/2024 11:18 AM CLINICAL TRIAL COORDINATOR ICAL TRIAL COORDINATOR ICAL TRIAL COORDINATOR documented in this encounter Plan of Treatment Upcoming Encounters Date Type Department Care Team (Late st Contact Info) Description 10/03/2024 2:40 PM CDT Office Visit [facility] Primary Care [facility] [address] [place] [address] Rossi Jensen MD [address] [place] [address] 12/12/2024 10:00 AM CDT Office Visit [facility] [address] [facility] [address] [place] [address] Gloria Montez MD [address] [facility] [address] [place] [address] 12/27/2024 8:30 AM CDT Appointment [facility] [place] [address] [place] [address] Dot Holland, FLIGHT OPERATIONS MANAGER [address] [place] [address] Scheduled Orders Name Type Priority Associated Diagnoses Orde r Schedule CT HEAD W WO CONTRAST Imaging Stat Worst headache of life Expected: 07/14/2024, Expires: 07/14/2025 documented as of this encounter Procedures Procedure Name Priority Date/Time Associated Diagnosis Comments POC INFLUENZA A/B AND COVID-19 ANTIGENS Routine 07/14/2024 11:11 AM CLINICAL TRIAL COORDINATOR Cough, unspecified type documented in this encounter Results * POC INFLUENZA A/B AND COVID-19 ANTIGENS (07/14/2024 11:11 AM CLINICAL TRIAL COORDINATOR) INFLUENZA A AG POC Not Detected Not Detected [facility] INFLUENZA B AG POC Not Detected Not Detected [facility] COVID-19 ANTIGEN POC Presumptively Negative Presumptively Negative [facility] INTERNAL KIT QC POC Pass Pass [facility] KIT LOT NUMBER POC [id number] [facility] KIT EXP DATE POC [id number] [facility] Upper Respiratory 07/14/2024 11:11 AM CLINICAL TRIAL COORDINATOR Jaylen Cerda PA-C POINT OF CARE TESTING Final Result [facility] CLIA# [id number] [address] [place] [address] documented in this encounter Visit Diagnoses Diagnosis Cough, unspecified type- Primary Worst headache of life Headache documented in this encounter Additional Health Concerns Assessment Noted Time PHQ-9 Depression Total Score: 2 06/27/19 25 12:57 PM CLINICAL TRIAL COORDINATOR documented as of this encounter Care Teams Medical Language Specialist Relationship Specialty Start Date End Date Rossi Jensen MD [address] [place] [address] PCP - General Internal Medicine 11/30/20 documented as of this encounter
--- OUTSIDE RECORDS SUMMARY | 2024-07-14 12:51 | XMS_ITS | Encounter Summary ---
Author Organization [facility] Address [address] [place] [address] Care Team Providers Care Director Of Strategic Programs Name Role Phone Rossi Jensen MD Primary Care Provider [phone] Reason for Visit * Reason Comments Medication Refill Encounter Details Date Type Department Care Team (Late Contact Info) Description 03/12/2019 Refill [facility] [address] [facility] [address] [place] [address] Gloria Montez MD [address] [facility] [address] [place] [address] Social History Tobacco Use Types Packs/Day Years Used Date Smoking Tobacco: Never Smokeless Tobacco: Never Alcohol Use Standard Drinks/Week Comments Yes 0 (1 standard drink = 0.6 oz pur e alcohol) not often Comments No Sex and Gender Information Value Date Recorded Sex Assigned at Not on file Legal Sex Female 5:06 AM SUPERVISOR DENTURE DEPARTMENT Gender Identity Not on file Sexual Orientation Not on file documented as of this encounter Plan of Treatment Upcoming Encounters Date Type Department Care Team (Late st Contact Info) Description 10/03/2024 2:40 PM CDT Office Visit [facility] Primary Care [facility] [address] [place] [address] Rossi Jensen MD [address] [place] [address] 12/12/2024 10:00 AM CDT Office Visit [facility] [address] [facility] [address] [place] [address] Gloria Montez MD [address] [facility] [address] [place] [address] 12/27/2024 8:30 AM CDT [facility] [address] [place] [address] Dot Holland, [facility] [address] [facility] [address] [place] [address] documented as of this encounter Visit Diagnoses Not on filedocumented in this encounter Additional Health Concerns Infection Onset Date Last Indicated Resolved Time R/O COVID-19 09/15/2022 09/15/2022 09/18/2022 11:0 8 AM CDT documented as of this encounter Care Teams Director Of Strategic Programs Relationship Specialty Start Date End Date Rossi Jensen MD [address] [place] [address] PCP - General Internal Medicine 11/30/20 documented as of this encounter
--- OUTSIDE RECORDS SUMMARY | 2024-07-14 12:51 | XMS_ITS | Referral Summary ---
Author Organization [facility] Address [address] [place] [address] Care Team Providers Care System Dispatcher Name Role Phone Eli Martini MD Primary Care Provider Unavail able Source Comments [facility],non-owned Affiliates and Associated Physician Practices is amultiple site organization consisting of ambulatory clinics and hospital sitesin [place], [place], [place] and [place]. This disclosure is being madepursuant to the Care Everywhere program and may not contain all information available regarding this patient. Last updated 18.[facility] Allergies Active Allergy Reactions Criticality Noted Date [...] 10/17/2020 7:01 PM CDT Plan of Treatment Not on file Care Teams System Dispatcher Relationship Specialty Start Date End Date Eli Martini MD PCP - General Internal Medicine 10/17/20
--- OUTSIDE RECORDS SUMMARY | 2024-07-14 12:51 | XMS_ITS | Encounter Summary ---
Author Organization [facility] Address [address] [place] [address] Care Team Providers Care Portable Machine Cutter Name Role Phone Rossi Jensen MD Primary Care Provider [phone] Encounter Details Date Type Department Care Team (Latest Contact Info) Description 08/04/2006 Outpatient Historical HIS [facility] [place] [address] [place] [address] Acute Sinusitis, Unspecified (Primary Dx) Social History Tobacco Use Types Packs/Day Years Used Date Smoking Tobacco: Never Assessed Comments Unknown Sex and Gender Information Value Date Recorded Sex Assigned at Not on file Legal Sex Female 5:06 AM CYBER SECURITY ANALYST Gender Identity Not on file Sexual Orientation Not on file documented as of this encounter Plan of Treatment Upcoming Encounters Date Type Department Care Team (Late st Contact Info) Description 10/03/2024 2:40 PM CDT Office Visit [facility] Primary Care [facility] [address] [place] [address] Rossi Jensen MD [address] [place] [address] 12/12/2024 10:00 AM CDT Office Visit [facility] [place] [address] [facility] [address] [place] [address] Gloria Montez MD [address] [facility] [address] [place] [address] 12/27/2024 8:[address] [facility] [place] A [address] [place] [address] Dot Holland, [facility] [address] [place] [address] documented as of this encounter Visit Diagnoses Diagnosis Acute sinusitis, unspecified- Primary documented in this encounter Additional Health Concerns Infection Onset Date Last Indicated Resolved Time R/O COVID-19 09/15/2022 09/15/2022 09/18/2022 11:0 8 AM CDT documented as of this encounter Care Teams Portable Machine Cutter Relationship Specialty Start Date End Date Rossi Jensen MD [address] [place] [address] PCP - General Internal Medicine 11/30/20 documented as of this encounter
--- OUTSIDE RECORDS SUMMARY | 2024-07-14 12:51 | XMS_ITS | Patient Health Summary ---
Author Organization [facility] Address [address] [place] [address] Care Team Providers Care Dispatcher Service Chief Name Role Phone Eli Martini MD Primary Care Provider Unavail able Note from [facility],non-owned Affiliates and Associated Physician Practices is amultiple site organization consisting of ambulatory clinics and hospital sitesin [place], [place] and [place]. This disclosure is being madepursuant to the Care Everywhere program and may not contain all information available regarding this patient. Last updated 18.[facility] Allergies * Sulfa Drugs(Urticaria) -Medium Criticality Medications * Be aware that medications may not be up to date on this document. Alwaysverify current medications with the patient. * Loratadine (CLARITIN PO) * aspirin (ASPIRIN) 81 MG chew tablet Take 81 mg by mouth once daily * venlafaxine (EFFEXOR) 37.5 MG tablet Take 75 mg by mouth 3 times daily with meals * tamoxifen (NOLVADEX) 20 MG tablet Take 20 mg by mouth once daily Social History Tobacco Use Types Packs/Day Years [...] Mass Index 27.92 10/17/2020 7:01 PM CDT Procedures * SARS-COV-2 (COVID-19) AG (AMB) POCT(Performed 10/17/2020) Performed for Nasopharyngitis acute * GROSS + MICRO EXAM(Performed 04/16/1998) Results * SARS-COV-2 (COVID-19) AG (AMB) POCT (10/17/2020 7:04 PM CDT) Pathologist [facility] SARS-CoV-2 Ag Negative Negative [facility] [employer] [facility] Lot # [id number] [facility] Expiration Date 05 31 2022 [facility] [employer] [facility] Instrument Serial Number [id number] [facility] [employer] [facility] COVID Internal Control Acceptable Acceptable [facility] [facility] Microbiology SPECIMEN FROM NASAL FOSSAE / Unknown 10/17/2020 7:04 PM CDT Narrative [facility] - 10/17/2020 7:04 PM CDT Negative results should be treated as presumptive and confirmation with a molecular assay, if necessary, for patient management, may be performed. Negative results do not rule out COVID-19 and should not be used as the sole basis for treatment or patient management decisions, including infection control decisions. Negative results should be considered in the context of a patient's recent exposures, history and the presence of clinical signs and symptoms consistent with COVID-19. SARS-CoV-2 antigen testing is authorized for use with nasal (Veritor, BinaxNOW, or Velma) or nasopharyngeal (Velma) swabs collected from individuals who are suspected of COVID-19 infection by their healthcare provider within the first five days of onset of symptoms. ??False-positive SARS-CoV-2 test results are more likely to occur when disease prevalence is low (less than 1%). False-negative SARS-CoV-2 test results are more likely to occur when disease prevalence is high (greater than 10%). ?? This test has been authorized by the Food and Drug administration (FDA)under an Emergency??Use Authorization (EUA). This test is only authorized for the duration of time the declaration that circumstances exist justifying the authorization of emergency use of in vitro diagnostic tests for detection of SARS-CoV-2 virus and/or diagnosis of COVID-19 infection under section 564(b)(1) of the Act, 21 U.S.C 360bbb-3 (b)(1), unless the authorization is terminated or revoked sooner. Fact Sheets for this EUA assay are available upon request. Nohelia Milian JOURNEYMAN CARPENTER-DRAWER FITTER LAB - POINT OF MI RE ORDERABLES [place] [address], [facility] [phone] * GROSS + MICRO EXAM (04/16/1998 12:00 AM TECHNICAL OPERATIONS VICE PRESIDENT) Result CASE NUMBER [id number] Comment: ORDERING PHYSICIAN ??CHRISTOPHER ODWD SPECIMEN TYPE ?Products of Concept Preop Dx ? Missed AB Postop Dx ?Same Clinical Findings ?See above GROSS DESCRIPTION ? In histochoice labeled products of conception are spongy villous and membranous tissue fragments without identifiable embryo or parts total about 20 gram retrieved from aspiration trap and sampled in one cassette. ??(jal)dmh BLOCK ? A - Products of conception Grossed by ? Sanket Mott M.D. MICROSCOPIC EXAMINATION ? Sections show immature chorionic villi along with membranous material. ??No embryonic tissue is present. ??(dkh)dmh DIAGNOSIS ? Uterine contents - ? Products of conception (villi present) Read by ?Jesus Pichardo M.D. Released By ?JESUS PICHARDO MISCELLANEOUS SAMPLE S / Unknown 04/16/1998 04/17/1998 1:55 PM TECHNICAL OPERATIONS VICE PRESIDENT Historical Provider LAB - PATHOLOGY/C YTOLOGY ORDERABLES Care Teams Dispatcher Service Chief Relationship Specialty Start Date End Date Eli Martini MD PCP - General Internal Medicine 10/17/20
--- OUTSIDE RECORDS SUMMARY | 2024-07-14 12:51 | XMS_ITS | Encounter Summary ---
Author Organization [facility] Address 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 Gender Identity Not on file Sexual Orientation Not on file documented as of this encounter Plan of Treatment Upcoming Encounters Date Type Department Care Team (Late st Contact Info) Description 10/03/2024 2:40 PM CDT Office Visit [facility] Primary Care [facility] [address] [place] [address] Rossi Jensen MD [address] [place] [address] 12/12/2024 10:00 AM CDT Office Visit [facility] [place] [facility] [address] [facility] [address] [place] [address] Gloria Montez MD [address] [facility] [address] [place] [address] 12/27/2024 8:30 AM CDT Appointment [facility] [place] A [address] [place] [address] Dot Holland, [facility] [address] [facility] [address] [place] [address] documented as of this encounter Visit Diagnoses Diagnosis Abdominal pain, unspecified site- Primary documented in this encounter Additional Health Concerns Infection Onset Date Last Indicated Resolved Time R/O COVID-19 09/15/2022 09/15/2022 09/18/2022 11:0 8 AM CDT documented as of this encounter Care Teams Daytime Babysitter Relationship Specialty Start Date End Date Rossi Jensen MD [address] [place] [address] PCP - General Internal Medicine 11/30/20 documented as of this encounter
--- OUTSIDE RECORDS SUMMARY | 2024-07-14 12:51 | XMS_ITS | Encounter Summary ---
Author Organization [facility] Address [address] [place] [address] Care Team Providers Care Warehouse Operations Associate Name Role Phone Rossi Jensen MD Primary Care Provider [phone] Reason for Visit * Reason Comments Medication Refill Encounter Details Date Type Department Care Team (Late Contact Info) Description 10/11/2019 Refill [facility] [address] [facility] [address] [place] [address] Gloria Montez MD [address] [facility] [address] [place] [address] Social History Tobacco Use Types Packs/Day Years Used Date Smoking Tobacco: Never Smokeless Tobacco: Never Alcohol Use Standard Drinks/Week Comments Yes 0 (1 standard drink = 0.6 oz pur e alcohol) not often Comments No Sex and Gender Information Value Date Recorded Sex Assigned at Not on file 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 Gender Identity Not on file Sexual Orientation Not on file documented as of this encounter Plan of Treatment Upcoming Encounters Date Type Department Care Team (Late st Contact Info) Description 10/03/2024 2:40 PM CDT Office Visit [facility] Primary Care [facility] [address] [place] [address] Rossi Jensen MD [address] [place] [address] 12/12/2024 10:00 AM CDT Office Visit [facility] [place] [address] [facility] [address] [place] [address] Glroia Montez MD [address] [facility] [address] [place] [address] 12/27/2024 8:30 AM CDT [facility] [address] [place] [address] Dot Holland, [facility] [address] [facility] [address] [place] [address] documented as of this encounter Visit Diagnoses Not on filedocumented in this encounter Additional Health Concerns Infection Onset Date Last Indicated Resolved Time R/O COVID-19 09/15/2022 09/15/2022 09/18/2022 11:0 8 AM CDT documented as of this encounter Care Teams Warehouse Operations Associate Relationship Specialty Start Date End Date Rossi Jensen MD [address] [place] [address] PCP - General Internal Medicine 11/30/20 documented as of this encounter
--- OUTSIDE RECORDS SUMMARY | 2024-07-14 14:23 | XMS_ITS | Encounter Summary ---
Author Organization [facility] Address [address] [place] [address] Care Team Providers Care Maintenance Team Leader Name Role Phone Rossi Jensen MD Primary Care Provider [phone] Reason for Visit * Reason Comments Medication Refill Encounter Details Date Type Department Care Team (Late Contact Info) Description 03/12/2019 Refill [facility] [address] [address] [facility] [address] [place] [address] Gloria Montez MD [address] [facility] [address] [place] [address] Social History Tobacco Use Types Packs/Day Years Used Date Smoking Tobacco: Never Smokeless Tobacco: Never Alcohol Use Standard Drinks/Week Comments Yes 0 (1 standard drink = 0.6 oz pur e alcohol) not often Comments No Sex and Gender Information Value Date Recorded Sex Assigned at Not on file Legal Sex Female 5:06 AM BANDER HAND Gender Identity Not on file Sexual Orientation Not on file documented as of this encounter Plan of Treatment Upcoming Encounters Date Type Department Care Team (Late st Contact Info) Description 10/03/2024 2:40 PM CDT Office Visit [facility] [address] [place] [address] Rossi Jensen MD [address] [place] [address] 12/12/2024 10:00 AM CDT Office Visit [facility] [place] [address] [facility] [address] [place] [address] Gloria Montez MD [address] [facility] [address] [place] [address] 12/27/2024 8:30 AM CDT [facility]ointment [facility] [address] [place] [address] Dot Holland, [facility] [address] [facility] [address] [place] [address] documented as of this encounter Visit Diagnoses Not on filedocumented in this encounter Additional Health Concerns Infection Onset Date Last Indicated Resolved Time R/O COVID-19 09/15/2022 09/15/2022 09/18/2022 11:0 8 AM CDT documented as of this encounter Care Teams Maintenance Team Leader Relationship Specialty Start Date End Date Rossi Jensen MD [address] [place] [address] PCP - General Internal Medicine 11/30/20 documented as of this encounter
--- OUTSIDE RECORDS SUMMARY | 2024-07-14 14:23 | XMS_ITS | Encounter Summary ---
Author [facility] Address [address] [place] [address] Care Team Providers Care Oil Well Drilling Manager Name Role Phone Rossi Jensen MD Primary Care Provider [phone] Reason for Referral * CT Scan (Urgent) - Pending Review Specialty Diagnoses / Procedures Referred By Contwesley t Referred To Contact Diagnoses Worst headache of life Procedures CT HEAD W WO CONTRAST Jaylen Cerda PA-C [address] [place] [address] Phone: tel: fax: Referral ID Status Reason Start Date Expiration Date V isits Requested Visits Authorized [id number] Pending Review 07/14/2024 08/14/2025 1 1 ETRIC ASSISTANT Reason for Visit * Reason Comments Headache Headache going on fo r 36 hours Sinus Pain Sinus pain Fever Had fever on and Thursday Encounter Details Date Type Department Care Team (Late st Contact Info) Description 07/14/2024 10:40 AM OBSTETRIC ASSISTANT Office Visit [facility] [place] [address] Jaylen Cerda PA-C [address] [place] [address] Cough, unspecified type (Primary Dx); [...] on file Legal Sex Female 5:06 AM OBSTETRIC ASSISTANT Gender Identity Not on file Sexual Orientation Not on file documented as of this encounter Last Filed Vital Signs Vital Sign Reading Time Taken Comments Blood Pressure 110/80 07/14/2024 10:44 AM OBSTETRIC ASSISTANT Pulse 83 07/14/2024 10:44 AM OBSTETRIC ASSISTANT Temperature 36.9 ??C (98.5 ??F) 07/14/2024 10:[address] Respiratory Rate 18 07/14/2024 10:44 AM OBSTETRIC ASSISTANT Oxygen Saturation 98% 07/14/2024 10:44 AM OBSTETRIC ASSISTANT Inhaled Oxygen Concentration - - Weight 78.3 kg (172 lb 9.6 oz) 07/14/2024 10:44 AM OBSTETRIC ASSISTANT Height 167.6 cm (5' 6 ) 07/14/2024 10:44 AM OBSTETRIC ASSISTANT Body Mass Index 27.86 07/14/2024 10:44 AM OBSTETRIC ASSISTANT documented in this encounter Progress Notes * Rossi Jensen MD - 07/14/2024 1:00 PM CST Progress note reviewed. I agree with the assessment and treatment plan set by SENIOR NATIONAL ACCOUNT MANAGER. ETRIC ASSISTANT * Jaylen Cerda PA-C - 07/14/2024 10:57 [...] COLONOSCOPY performed by Moody Aguilera MD at [facility] ENDOSCOPY HX DILATION AND CURETTAGE 10/1997 HX EXCISION / BIOPSY BREAST / NIPPLE / DUCT Left 2019 ADH HX HERNIA REPAIR 1976 HX SPINAL SURGERY 2013 cervical HX TUBAL LIGATION Bilateral 2010 VT EXC CYST/ABERRANT BREAST TISSUE OPEN LESION Left 02/14/2020 LEFT BREAST EXCISIONAL BIOPSY WITH NEEDLE LOCALIZATION AT 7:00 AM performed by Rosaline Martins MDat [facility] CC OR Social History Tobacco Use Smoking [...] and management. She plans to go to [facility] for evaluation and management. Called [facility] and was transferred to the ED. Report given to David in the ED. Pt to follow up pending ED evaluation and PRN Jaylen Cerda PA-C ETRIC ASSISTANT documented in this encounter Miscellaneous Notes * Patient Instructions - Jaylen Cerda PA-C - 07/14/2024 11:18 AM OBSTETRIC ASSISTANT ETRIC ASSISTANT ETRIC ASSISTANT documented in this encounter Plan of Treatment Upcoming Encounters Date Type Department Care Team (Late st Contact Info) Description 10/03/2024 2:40 PM CDT Office Visit [facility] Primary Care [facility] [address] [place] [address] Rossi Jensen MD [address] [place] [address] 12/12/2024 10:00 AM CDT [facility] [address] [facility] [address] [place] [address] Gloria Montez MD [address] [facility] [address] [place] [address] 12/27/2024 8:30 AM CDT Appointment [facility] [place] A [address] [place] [address] Dot Holland, [facility] [address] [facility] [address] [place] [address] Scheduled Orders Name Type Priority Associated Diagnoses Orde r Schedule CT HEAD W WO CONTRAST Imaging Stat Worst headache of life Expected: 07/14/2024, Expires: 07/14/2025 documented as of this encounter Procedures Procedure Name Priority Date/Time Associated Diagnosis Comments POC INFLUENZA A/B AND COVID-19 ANTIGENS Routine 07/14/2024 11:11 AM OBSTETRIC ASSISTANT Cough, unspecified type documented in this encounter Results * POC INFLUENZA A/B AND COVID-19 ANTIGENS (07/14/2024 11:11 AM OBSTETRIC ASSISTANT) INFLUENZA A AG POC Not Detected Not Detected [facility] INFLUENZA B AG POC Not Detected Not Detected [facility] COVID-19 ANTIGEN POC Presumptively Negative Presumptively Negative [facility] INTERNAL KIT QC POC Pass Pass [facility] KIT LOT NUMBER POC [id number] [facility] KIT EXP DATE POC [id number] [facility] Upper Respiratory 07/14/2024 11:11 AM OBSTETRIC ASSISTANT us Jaylen Cerda PA-C POINT OF CARE TESTING Final Result [facility] CLIA# [id number] [address] [place] [address] documented in this encounter Visit Diagnoses Diagnosis Cough, unspecified type- Primary Worst headache of life Headache documented in this encounter Additional Health Concerns Assessment Noted Time PHQ-9 Depression Total Score: 2 06/27/19 25 12:57 PM OBSTETRIC ASSISTANT documented as of this encounter Care Teams Oil Well Drilling Manager Relationship Specialty Start Date End Date Rossi Jensen MD [address] [place] [address] PCP - General Internal Medicine 11/30/20 documented as of this encounter
--- OUTSIDE RECORDS SUMMARY | 2024-07-14 14:23 | XMS_ITS | Encounter Summary ---
Author Organization [facility] Address [address] [place] [address] Care Team Providers Care Arc Cutter Plasma Arc Name Role Phone Rossi Jensen MD Primary Care Provider [phone] Encounter Details Date Type Department Care Team (Latest Contact Info) Description 08/04/2006 Outpatient Historical HIS [facility] [place] [address] [place] [address] Acute Sinusitis, Unspecified (Primary Dx) Social History Tobacco Use Types Packs/Day Years Used Date Smoking Tobacco: Never Assessed Comments Unknown Sex and Gender Information Value Date Recorded Sex Assigned at Not on file 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 Gender Identity Not on file Sexual Orientation Not on file documented as of this encounter Plan of Treatment Upcoming Encounters Date Type Department Care Team (Late st Contact Info) Description 10/03/2024 2:40 PM CDT Office Visit [facility] Primary Care [facility] [address] [place] [address] Rossi Jensen MD [address] [place] [address] 12/12/2024 10:00 AM CDT Office Visit [facility] [place] [place] [address] [facility] [address] [place] [address] Gloria Montez MD [address] [facility] [address] [place] [address] 12/27/2024 8:30 AM CDT Appointment [facility] [place] A [address] [place] [address] Dot Holland, [facility] [address] [place] [address] documented as of this encounter Visit Diagnoses Diagnosis Acute sinusitis, unspecified- Primary documented in this encounter Additional Health Concerns Infection Onset Date Last Indicated Resolved Time R/O COVID-19 09/15/2022 09/15/2022 09/18/2022 11:0 8 AM CDT documented as of this encounter Care Teams Arc Cutter Plasma Arc Relationship Specialty Start Date End Date Rossi Jensen MD [address] [place] [address] PCP - General Internal Medicine 11/30/20 documented as of this encounter
--- OUTSIDE RECORDS SUMMARY | 2024-07-14 14:23 | XMS_ITS | Clinical Summary ---
Author Organization [facility] Address [address] [facility] [place] [address] Care Team Providers Care Wrecker Driver Name Role Phone Eli Martini MD Primary Care Provider Unavail able Source Comments [facility],non-owned Affiliates and Associated Physician Practices is amultiple site organization consisting of ambulatory clinics and hospital sitesin [place], [place], [place] and [place]. This disclosure is being madepursuant to the Care Everywhere program and may not contain all information available regarding this patient. Last updated 18.[facility] Allergies Active Allergy Reactions Criticality Noted Date [...] age to complete this topic Care Teams Wrecker Driver Relationship Specialty Start Date End Date Eli Martini MD PCP - General Internal Medicine 10/17/20
--- OUTSIDE RECORDS SUMMARY | 2024-07-14 14:23 | XMS_ITS | Clinical Summary ---
Author Organization [facility] Address [address] [facility] [place] [address] Phone Care Team Providers Care Maintenance Department Technician Name Role Phone Rossi Jensen MD Primary Care Provider [phone] Allergies Active Allergy Reactions Criticality Noted Date [...] MD Referring Provider: Eli Martini MD [address] [address] Other: Dr Rosaline Martins MD Problem Noted [...] Department Care Team Description 07/14/2024 10:40 AM DATA CAPTURE SPECIALIST Office Visit [facility] Primary Care [facility] [address] [place] [address] Jaylen Cerda PA-C Cough, unspecified type (Primary Dx); Worst headache of life 07/06/2024 External Device Data STL ABSTRACTION Provider, Abstract 07/05/2024 External Device Data STL ABSTRACTION Provider, Abstract 07/04/2024 Results Follow-Up [facility] [address] [place] [address] Rossi Jensen MD 07/04/2024 Orders Only [facility] [address] [place] [address] Rossi Jensen MD Pain of finger of left hand 07/01/2024 2:00 PM DATA CAPTURE SPECIALIST Office Visit [facility] Oncology and Hematology [facility] [address] [facility] [place] [address] [place] [address] Martha Malone, RAAD At high risk for breast cancer (Primary Dx); Hot flashes; SERM use (selective estrogen receptor modulator); Atypical ductal hyperplasia of left breast; Encounter for medication monitoring 07/01/2024 11:45 AM DATA CAPTURE SPECIALIST Office Visit [facility] Breast Surgery José Miguel Severiano [address] [facility] [address] [place] [address] Dot Holland, THREAD WINDER Breast cancer screening by mammogram (Primary Dx); Atypical ductal hyperplasia of left breast; At high risk for breast cancer; Family history of breast cancer; Prophylactic use of tamoxifen 07/01/2024 Chart Note [facility] Breast Surgery José Miguel Marquand [address] [facility] [address] [place] [address] Yuly Abbasi 06/28/2024 External Device Data STL ABSTRACTION Provider, Abstract 06/27/2024 1:00 PM DATA CAPTURE SPECIALIST Office Visit [facility] [address] [place] [address] Rossi Jensen MD Pain of finger of left hand (Primary Dx); Menopausal symptoms; Anxiety state; Migraine with aura and without status migrainosus, not intractable; Recurrent major depressive disorder, in partial remission; Atypical ductal hyperplasia of left breast; Overweight (BMI 25.0-29.9); Screening for diabetes mellitus; Screening, anemia, deficiency, iron; Screening cholesterol level; Screening for thyroid disorder; Vitamin D insufficiency 06/27/2024 9:07 AM DATA CAPTURE SPECIALIST - 06/27/2024 11:59 PM [facility] Hospital Encounter [facility] José Miguel العلي [address] [place] [address] Dot Holland, THREAD WINDER Discharge Disposition: Home or Self Care 06/13/2024 Refill [facility] Primary Care [place] [address] [place] [address] Rossi Jensen MD Recurrent major [...] on file Legal Sex Female 5:06 AM DATA CAPTURE SPECIALIST Gender Identity Not on file Sexual Orientation Not on file Last Filed Vital Signs Vital Sign Reading Time Taken Comments Blood Pressure 110/80 07/14/2024 10:44 AM DATA CAPTURE SPECIALIST Pulse 83 07/14/2024 10:44 AM DATA CAPTURE SPECIALIST Temperature 36.9 ??C (98.5 ??F) 07/14/2024 10:[address] Respiratory Rate 18 07/14/2024 10:44 AM DATA CAPTURE SPECIALIST Oxygen Saturation 98% 07/14/2024 10:44 AM DATA CAPTURE SPECIALIST Inhaled Oxygen Concentration - - Weight 78.3 kg (172 lb 9.6 oz) 07/14/2024 10:44 AM DATA CAPTURE SPECIALIST Height 167.6 cm (5' 6 ) 07/14/2024 10:44 AM DATA CAPTURE SPECIALIST Body Mass Index 27.86 07/14/2024 10:44 AM DATA CAPTURE SPECIALIST Plan of Treatment Upcoming Encounters Date Type Department Care Team (Late st Contact Info) Description 10/03/2024 2:40 PM CDT Office Visit [facility] Primary Care [facility] [address] [place] [address] Rossi Jensen MD [address] [place] [address] 12/12/2024 10:00 AM CDT Office Visit [facility] [place] [address] [facility] [address] [place] [address] Gloria Montez MD [address] [facility] [address] [place] [address] 12/27/2024 8:30 AM CDT Appointment [facility] [place] A [address] [place] [address] Dot Holland, [facility] [address] [facility] [address] [place] [address] Health Maintenance Due Date Last [...] history exists Medical Devices Implanted Type Area Director Of Materials Device Identifier Shelf Expiration Date Model / Serial / Lot Hemostatic Surgicel 2x14in 1950 - [id number] Implanted:Qty: 1 on 02/14/2020 by Rosaline Martins MD at [facility] Hemostatic Left: Breast [employer] 03/14/20221950 / / [id number] Procedures Procedure Name Priority Date/Time Associated Diagnosis Comments POC INFLUENZA A/B AND COVID-19 ANTIGENS Routine 07/14/2024 11:11 AM DATA CAPTURE SPECIALIST Cough, unspecified type VITAMIN D 25 HYDROXY Routine 07/04/2024 9:05 AM DATA CAPTURE SPECIALIST Vitamin D insufficiency TSH REFLEXIVE Routine 07/04/2024 9:05 AM DATA CAPTURE SPECIALIST Screening for thyroid disorder LIPID PANEL Routine 07/04/2024 9:05 AM DATA CAPTURE SPECIALIST Screening cholesterol level COMPREHENSIVE METABOLIC PANEL Routine 07/04/2024 9:05 AM DATA CAPTURE SPECIALIST Screening for diabetes mellitus CBC WITH DIFFERENTIAL Routine 07/04/2024 9:05 AM DATA CAPTURE SPECIALIST Atypical ductal hyperplasia of left breast Screening, anemia, deficiency, iron XR HAND 3+ VW LEFT Routine 07/02/2024 Pain of finger of left hand MRI BREAST DIAGNOSTIC WWO CONTRAST BILATERAL Routine 06/27/2024 9:49 AM DATA CAPTURE SPECIALIST Atypical ductal hyperplasia of left breast Breast [...] A/B AND COVID-19 ANTIGENS (07/14/2024 11:11 AM DATA CAPTURE SPECIALIST) INFLUENZA A AG POC Not Detected Not Detected [facility] INFLUENZA B AG POC Not Detected Not Detected [facility] COVID-19 ANTIGEN POC Presumptively Negative Presumptively Negative [facility] INTERNAL KIT QC POC Pass Pass [facility] KIT LOT NUMBER POC [id number] [facility] KIT EXP DATE POC [id number] [facility] Upper Respiratory 07/14/2024 11:11 AM DATA CAPTURE SPECIALIST us Jaylen Cerda PA-C POINT OF CARE TESTING Final Result Performing Organization Address [facility] de Phone Number [facility] CLIA# [id number] [address] [place] [address] * TSH REFLEXIVE (07/04/2024 9:05 AM DATA CAPTURE SPECIALIST) TSH 1.53 mIU/L [facility] Comment: ?Reference Range ?> or = 20 Years ??0.40-4.50 ? Ranges ?First trimester ?0.26-2.66 ?Second trimester ?? 0.55-2.73 ?Third trimester ?0.43-2.91 Test Performed at: [facility] [address] [place], [place] ??[address] Sloane Johnson MD Blood 07/04/2024 9:05 AM DATA CAPTURE SPECIALIST 07/04/2024 9:06 AM DATA CAPTURE SPECIALIST us Rossi Jensen MD CHEMISTRY ORDERABLES Final Resul t Performing Organization Address [facility] de Phone Number [facility] [phone] [facility] [address] [place] [address] * CBC WITH DIFFERENTIAL (07/04/2024 9:05 AM DATA CAPTURE SPECIALIST) WBC 5.6 3.8 - 10.8 Thousand/u L [...] Comment: FASTING:YES FASTING: YES Test Performed at: [facility] [address] [place] ??[address] Sloane Johnson MD Blood 07/04/2024 9:05 AM DATA CAPTURE SPECIALIST 07/04/2024 9:06 AM DATA CAPTURE SPECIALIST us Rossi Jensen MD HEMATOLOGY ORDERABLES Final Resu lt [facility] [phone] [email or web address] [address] * VITAMIN D 25 HYDROXY (07/04/2024 9:05 AM DATA CAPTURE SPECIALIST) VITAMIN D, 25 OH, TOTAL 78 30 - 100 ng/mL [facility] Comment: Vitamin D Status ? 25-OH Vitamin D: Deficiency: ?<20 ng/mL Insufficiency: ? 20 - 29 ng/mL Optimal: ? > or = 30 ng/mL For 25-OH Vitamin D testing on patients on D2-supplementation and patients for whom quantitation of D2 and D3 fractions is required, the QuestAssureD(TM) 25-OH VIT D, (D2,D3), LC/MS/MS is recommended: order code 01319 (patients >2yrs). See Note 1 Note 1 For additional information, please refer to http://education.Teal Orbit/faq/XKJ744 (This link is being provided for informational/ educational purposes only.) FASTING:YES FASTING: YES Test Performed at: [facility] ??[address] Sloane Johnson MD Blood 07/04/2024 9:05 AM DATA CAPTURE SPECIALIST 07/04/2024 9:06 AM DATA CAPTURE SPECIALIST us Rossi Jensen MD CHEMISTRY ORDERABLES Final Resul t Performing Organization Address City/[facility]/ZIP Co de Phone Number [facility] [phone] [email or web address] [address] * LIPID PANEL (07/04/2024 9:05 AM DATA CAPTURE SPECIALIST) Pathologist [facility] CHOLESTEROL 164 <200 mg/dL [facility] HDL 68 > OR = 50 [...] LDL-C. Kevin SS et al. DEMETRIUS. 2013;310(19): 9910-8092 (http://education.Teal Orbit/faq/AEA673) CHOL/HDL RATIO 2.4 <5.0 (calc) [facility] NON-HDL CHOLESTEROL 96 <130 mg/dL (calc) [facility] Comment: For patients with diabetes plus 1 major ASCVD risk factor, treating to a non-HDL-C goal of <100 mg/dL (LDL-C of <70 mg/dL) is considered a therapeutic option. Test Performed at: [facility] [address] [place], [place] ??[address] Sloane Johnson MD Blood 07/04/2024 9:05 AM DATA CAPTURE SPECIALIST 07/04/2024 9:06 AM DATA CAPTURE SPECIALIST us Rossi Jensen MD CHEMISTRY ORDERABLES Final Resul t [facility] [phone] [facility] [address] [place] [address] * (ABNORMAL) COMPREHENSIVE METABOLIC PANEL (07/04/2024 9:05 AM DATA CAPTURE SPECIALIST) GLUCOSE 81 65 - 99 mg/dL [facility] Comment: ? Fasting reference interval BUN [...] Comment: FASTING:YES FASTING: YES Test Performed at: [facility] [address] [place] ??[address] Sloane Johnson MD Blood 07/04/2024 9:05 AM DATA CAPTURE SPECIALIST 07/04/2024 9:06 AM DATA CAPTURE SPECIALIST Rossi Jensen MD CHEMISTRY ORDERABLES Final Resul t [facility] [phone] [email or web address] [address] [place] [address] * XR HAND 3+ VW LEFT (07/02/2024) Anatomical Region Laterality Modality Wrist / Hand Other 07/02/2024 Rossi Jensen MD DIAGNOSTIC IMAGING ORDERABLES Fi nal Result * MRI BREAST W WO CONT BILAT (06/27/2024 9:49 AM DATA CAPTURE SPECIALIST) Anatomical Region Laterality Modality Breast Bilateral Magnetic Resonan ce 06/27/2024 9:53 AM DATA CAPTURE SPECIALIST Impressions 06/27/2024 10:22 AM DATA CAPTURE SPECIALIST IMPRESSION: ?? 1. No evidence of malignancy is identified within either breast. RECOMMENDATIONS: ?? Routine imaging follow-up is recommended, which may include annual mammography as well as annual bilateral breast MRI in this patient with increased breast cancer risk. DICTATION LOCATION: ??Ita العلي Narrative 06/27/2024 10:22 AM DATA CAPTURE SPECIALIST BILATERAL BREAST MRI WITHOUT AND WITH IV [...] coil system and image interpretation performed with FileThis CAD software. ?? BREAST COMPOSITION: There are [...] CATEGORY 1 - Negative us Dot Holland THREAD WINDER MR ORDERABLES Final Res ult * MAMMO [...] year. DICTATION LOCATION: Gennachely Severiano Dot Holland THREAD WINDER MAMMO ORDERABLES Final Re sult * CERV/VAG CYTO AGE BASED SCREEN PAP (12/09/2022 10:56 AM CDT) COMMENT (PAP): [facility] Comment: This order for age-based cervical cancer and STI screening follows ACOG guidelines(PB 168, 140, ATL244). See individual assays for performing site location. CLINICAL INFORMATION [facility] Comment:Routine exam LAST MENSTRUAL PERIOD [facility] Comment:NONE GIVEN PREV PAP: [facility] Comment:NONE GIVEN PREV BX: [facility] Comment:NONE GIVEN SOURCE [facility] Comment:Endocervix ADEQUACY: [facility] Comment: Satisfactory for evaluation. Endocervical/transformation zone component present. Age and/or menstrual status not provided PAP INTERP [facility] Comment:Negative for intraep ithelial lesion or malignancy. COMMENT (PAP TEST) [email or web address] Comment: This Pap test has been evaluated with computer assisted technology. STAFF RN: Essie est [email or web address] [place] Comment: MVB, CT(ASCP) CT Screening Location: [place] [address] [place] [address] EXPLANATORY NOTE Que [email or web address] Comment: EXPLANATORY NOTE: The Pap is [...] information. HPV E6/E7 Not Detected Not Detected [facility] Comment: Methodology: Welcome Wagon Host/Hostess-Mediated Amplification This assay detects E6/E7 viral messenger RNA (mRNA) from 14 high-risk HPV types (16,18,31,33,35,39,45,51,52,56,58,59,66,68). Cervical sources are required for HPV testing. If a vaginal source from a patient who has had a total hysterectomy with removal of cervix was submitted, please contact the testing laboratory for alternative testing options. For additional information, please refer to http://education.Luxodo/faq/RIQ157n9 (This link if provided for information/ educational purposes only.) Test Performed at: [facility] [address] [place] ??[address] Sloane BARBOZA Genital SWAB OF ENDOCERVIX / Unknown 12/09/2022 10:56 AM CDT 12/09/2022 11:29 PM CDT Gloria Montez MD PATHOLOGY/CYTOLOGY ORD ERABLES Final Result [facility] [phone] [facility] [address] [place] [address] * COLONOSCOPY REPORT (09/12/2021 12:17 PM CDT) Narrative Procedure Note Moody Aguilera MD - 09/12/2021 12:17 PM CDT [facility] Endoscopy Patient Name: Kelly Red [...] bowel preparation was evaluated using the BBPS ([place] Bowel Preparation Scale) with scores of: Right [...] 10 years. Procedure Code(s): --- Professional --- 96069, Colonoscopy, flexible; with removal of tumor(s), polyp(s), or other lesion(s) by snare technique CPT copyright 2019 [employer]. All rights reserved. The codes documented in this report are preliminary and upon insurance sales professional review may be revised to meet current compliance requirements. Moody Aguilera MD 09/12/2021 12:16:49 PM This report has been signed electronically. Number of Addenda: [id number] [place] [address] Moody Aguilera MD GI PROCEDURE ORDERABLES Final Re sult * HEMOGLOBIN A1C (01/26/2020 10:00 AM CDT) HEMOGLOBIN A1C 5.4 <5.7 % 01/26/2020 4:01 PM CDT [facility] EST. AVG GLUCOSE, A1C 108 mg/dL 01/26/2020 4:01 PM CDT [facility] Blood Venipuncture / Unknown 01/26/2020 10:00 AM CDT 01/26/2020 10:05 AM CDT Narrative [facility] - 01/26/2020 4:01 PM CDT HGB A1C INTERPRETATION NORMAL: ? <5.7% PRE-DIABETES: 5.7 - 6.4% DIABETES: ? 6.5% OR GREATER us Eli Martini MD CHEMISTRY ORDERABLES Final Res ult [facility] [id number] [place] [address] from Last 3 Months or Most Recently Relevant to Health Maintenance Insurance [facility] [employer] ACCESS CHOICE [facility] Event[employer]ar CHOICE [employer] CHOICE Care Teams Maintenance Department Technician Relationship Specialty Start Date End Date Birner, Rossi, MD [address] [place] [address] PCP - General Internal Medicine 11/30/20
--- OUTSIDE RECORDS SUMMARY | 2024-07-14 14:23 | XMS_ITS | Encounter Summary ---
Author Organization [facility] Address [address] [place] [address] Care Team Providers Care Eyelet Maker Name Role Phone Rossi Jensen MD Primary Care Provider [phone] Reason for Visit * Reason Comments Medication Refill Encounter Details Date Type Department Care Team (Late Contact Info) Description 10/11/2019 Refill [facility] [place] [address] [facility] [address] [place] [address] Gloria Montez MD [address] [email or web address] [address] [place] [address] Social History Tobacco Use Types Packs/Day Years Used Date Smoking Tobacco: Never Smokeless Tobacco: Never Alcohol Use Standard Drinks/Week Comments Yes 0 (1 standard drink = 0.6 oz pur e alcohol) not often Comments No Sex and Gender Information Value Date Recorded Sex Assigned at Not on file Legal Sex Female 5:06 AM 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 Gender Identity Not on file Sexual Orientation Not on file documented as of this encounter Plan of Treatment Upcoming Encounters Date Type Department Care Team (Late st Contact Info) Description 10/03/2024 2:40 PM CDT Office Visit [facility] Primary Care [facility] [address] [place] [address] Rossi Jensen MD [address] [place] [address] 12/12/2024 10:00 AM CDT Office Visit [facility] [place] [address] [facility] [address] [place] [address] Gloria Montez MD [address] [facility] [address] [place] [address] 12/27/2024 8:30 AM CDT [facility] [address] [place] [address] Dot Holland, [facility] [address] [facility] [address] [place] [address] documented as of this encounter Visit Diagnoses Not on filedocumented in this encounter Additional Health Concerns Infection Onset Date Last Indicated Resolved Time R/O COVID-19 09/15/2022 09/15/2022 09/18/2022 11:0 8 AM CDT documented as of this encounter Care Teams Eyelet Maker Relationship Specialty Start Date End Date Rossi Jensen MD [address] [place] [address] PCP - General Internal Medicine 11/30/20 documented as of this encounter
--- OUTSIDE RECORDS SUMMARY | 2024-07-14 14:23 | XMS_ITS | Referral Summary ---
Author Organization [facility] Address [address] [place] [address] Care Team Providers Care Heel Burnisher Name Role Phone Eli Martini MD Primary Care Provider Unavail able Source Comments [facility],non-owned Affiliates and Associated Physician Practices is amultiple site organization consisting of ambulatory clinics and hospital sitesin [place], [place], [place] and [place]. This disclosure is being madepursuant to the Care Everywhere program and may not contain all information available regarding this patient. Last updated 18.[facility] Allergies Active Allergy Reactions Criticality Noted Date [...] of Treatment Not on file Care Teams Heel Burnisher Relationship Specialty Start Date End Date Eli Martini MD PCP - General Internal Medicine 10/17/20
--- OUTSIDE RECORDS SUMMARY | 2024-07-14 14:23 | XMS_ITS | Encounter Summary ---
Author Organization [facility] Address [address] [place] [address] Care Team Providers Care Cutter Operator Tile Name Role Phone Rossi Jensen MD Primary Care Provider [phone] Encounter Details Date Type Department Care Team (Latest Contact Info) Description 05/20/2006 Outpatient Historical [facility] Gray Jenkins MD [address] [place] [address] Abdominal Pain, Unspecified Site (Primary Dx) Social History Tobacco Use Types Packs/Day Years Used Date Smoking Tobacco: Never Assessed Comments Unknown Sex and Gender Information Value Date Recorded Sex Assigned at Not on file Legal Sex Female 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 Primary Care [facility] [address] [place] [address] Rossi Jensen MD [address] [place] [address] 12/12/2024 10:00 AM CDT Office [facility] [address] [facility] [address] [place] [address] Gloria Montez MD [address] [facility] [address] [place] [address] 12/27/2024 8:30 AM CDT Appointment [facility] [place] A [address] [place] [address] Dot Holland, [facility] [address] [facility] [address] [place] [address] documented as of this encounter Visit Diagnoses Diagnosis Abdominal pain, unspecified site- Primary documented in this encounter Additional Health Concerns Infection Onset Date Last Indicated Resolved Time R/O COVID-19 09/15/2022 09/15/2022 09/18/2022 11:0 8 AM CDT documented as of this encounter Care Teams Cutter Operator Tile Relationship Specialty Start Date End Date Rossi Jensen MD [address] [place] [address] PCP - General Internal Medicine 11/30/20 documented as of this encounter
--- OUTSIDE RECORDS SUMMARY | 2024-07-14 14:23 | XMS_ITS | Patient Health Summary ---
Author Organization [facility] Address [address] [facility] [place] [address] Care Team Providers Care Freight Weigher Name Role Phone Eli Martini MD Primary Care Provider Unavail able Note from [facility], [facility],non-owned Affiliates and Associated Physician Practices is amultiple site organization consisting of ambulatory clinics and hospital sitesin [place], [place], [place] and [place]. This disclosure is being madepursuant to the Care Everywhere program and may not contain all information available regarding this patient. Last updated 18.[facility] Allergies * Sulfa Drugs(Urticaria) -Medium Criticality Medications [...] (AMB) POCT (10/17/2020 7:04 PM CDT) Pathologist [facility] SARS-CoV-2 Ag Negative Negative [facility] Lot # [id number] [facility] Expiration Date 05 31 2022 [facility] Instrument Serial Number [id number] [facility] COVID Internal Control Acceptable Acceptable [facility] Microbiology SPECIMEN FROM NASAL FOSSAE / Unknown [...] assay are available upon request. Nohelia Milian GEOSCIENTIST-ANALYTICAL LAB TECHNICIAN LAB - POINT OF ND RE ORDERABLES [place] [address], [facility] [phone] * GROSS + MICRO EXAM (04/16/1998 12:00 AM MILK HANDLER) Result CASE NUMBER [id number] Comment: ORDERING PHYSICIAN ??CHRISTOPHER DOWD SPECIMEN TYPE ?Products of Concept Preop Dx [...] S / Unknown 04/16/1998 04/17/1998 1:55 PM MILK HANDLER Historical Provider LAB - PATHOLOGY/C YTOLOGY ORDERABLES Care Teams Freight Weigher Relationship Specialty Start Date End Date Eli Martini MD PCP - General Internal Medicine 10/17/20
[2024-07-14] MEDS: ACETAMINOPHEN 500 MG TABLET 1000 MG PO (15:12)
[2024-07-14] MEDS: diphenhydrAMINE HCl INJ 50 MG/ML VIAL 25 MG IV PUSH (15:14)
[2024-07-14] MEDS: METOCLOPRAMIDE HCL INJ 10 MG/2 ML VIAL IV PUSH (15:15)
[2024-07-14 15:16] VITALS: BP 132/91; PULSE 88; RESP 16; O2SAT 100
[2024-07-14 16:26] VITALS: BP 110/70; PULSE 83; RESP 16; TEMP 36.4; O2SAT 100
[2024-07-14] MEDS: SODIUM CHLORIDE 0.9% IV 1,000 ML 999 ML IV CONT (16:41)
[2024-07-14 17:31] VITALS: BP 125/88; PULSE 74; RESP 16; O2SAT 100
[2024-07-14] MEDS: MAGNESIUM SULF 1 GM/D5W 100 ML 1 GM/100 ML BAG IVPB (19:15)
[2024-07-14] MEDS: KETOROLAC 30 MG/ML VIAL (*BKC) IV PUSH (19:21)
[2024-07-14 20:34] VITALS: BP 148/98; PULSE 65; RESP 18; TEMP 36.5; O2SAT 100
== END 2024-07-14 20:37 | disposition home or self-care (01) ==
PROVIDERS: Emergency Provider Physician Assistant
DX: G43.909 Migraine, unspecified, not intractable, without status migrainosus (principal)
CPT/HCPCS: 70450; 96361; 96365; 96375; 99284; A9270; J1200; J1885; J2765; J3475; J7030